=== PATIENT | female | born 1960 | race Caucasian/White ===

== ENCOUNTER 2020-07-29 16:51 | Inpatient (IN) | payer BC, OTHER, SELFPAY ==
[2020-07-29] VITALS (15 sets, daily range): BP systolic 127–227; BP diastolic 85–169; PULSE 84–155; RESP 10–27; TEMP 36.4–36.6; O2SAT 88–94; BMI 54.9
--- NOTE | 2020-07-29 17:15 | PC.NURSE ---
Repeat EKG done at 1701 and shown to ER doctor
--- NOTE | 2020-07-29 17:24 | ECG_ITS ---
[facility] Test Date: 2020-07-29 Pat Name: Leonila Zacarias Department: Room: Gender: Female Facilities Director: : 1960 Requested By: Elvia Aponte I Order Number: [id number] Simi MD: Gordy Lilly M.D. Measurements Intervals [place] Rate: 121 P: 62 MN: 173 QRS: -62 QRSD: 102 T: 54 QT: 306 QTc: 435 Interpretive Statements Possible SINUS TACHYCARDIA LEFT ANTERIOR FASCICULAR BLOCK [QRS AXIS <= -45, QR IN I, RS IN II] ANTERIOR MYOCARDIAL INFARCTION , PROBABLY OLD [40+ ms Q WAVE AND/OR ST/T ABNORMALITY IN V3/V4] INFERIOR MYOCARDIAL INFARCTION , PROBABLY OLD [40+ ms Q WAVE AND/OR ST/T ABNORMALITY IN II/aVF] No previous ECG available for comparison Electronically Signed On 07-29-2020 20:14:24 LUDLOW MACHINE OPERATOR by Gordy Lilly M.D. [id number] f
--- NOTE | 2020-07-29 17:24 | XR_ITS ---
WS: [id number] Portable AP upright chest, 07/29/2020 Clinical Data: chest pain Comparison: None. Findings: No nodules, masses or effusions are seen. The heart is enlarged. Minimal patchy peripheral opacities are present and the patient could have pneumonia. The pulmonary vascularity is not increase d. No pneumothorax is seen. The aortic arch and descending aorta show tortuosity. XR/XR chest 1V portable [id number] Impression: 1. Cardiomegaly and atherosclerosis. 2. Diffuse bilateral interstitial opacities which could indicate acute and/or c hronic pneumonia.
--- NOTE | 2020-07-29 17:24 | PC.PHAR ---
PT STATES SHE HAS A RX FOR LISINOPRIL-HCTZ AND HASNT TAKEN IT IN MONTHS AND IS UNSURE OF THE MG AND CANT REMEMBER WHERE SHE FILLED IN [place] LAST-PT STATES SHE HAD A RX FOR METFORMIN ER 500MG 4 TABS PO DAILY-EXT MED HISTORY SHOWS LAST FILLED ON 09/19/19 90D/S-PT STATES SHE HASNT TAKEN FOR MONTHS AND WHEN SHE DID TAKE SHE TOOK 1 OR 2 TABS A DAY
[2020-07-29] MEDS: aspirin 81 mg Chew Tablet 324 MG PO (17:34)
[2020-07-29] MEDS: nitroglycerin 0.4 mg sublingual Tablet SUBLINGUAL (17:34)
[2020-07-29 17:49] LABS: Basophils # 0.1 10^3/uL (0.0-0.1); Basophils % 0.7 %; Eosinophils # 0.2 10^3/uL (0.0-0.8); Eosinophils % 1.6 %; Hematocrit 55.7 % (37.0-47.0); Lymphocytes % 22.3 %; Mean Corpuscular HGB Conc 32.3 g/dL (30.0-36.0); Mean Corpuscular Hemoglobin 28.8 pg (28.0-34.0); Monocytes # 0.9 10^3/uL (0.2-0.9); Monocytes % 6.5 %; Neutrophils # 9.18 10^3/uL (1.8-7.7); Neutrophils % 68.6 %; Nucleated Red Blood Cells % 0 %; Platelet Count 288 10^3/cmm (130-400); Red Blood Count 6.26 10^6/uL (4.1-5.3); Red Cell Distribution Width 14.9 % (12.1-15.1); White Blood Count 13.4 10^3/uL (4.0-10.0)
[2020-07-29] MEDS: labetalol 5 mg/mL SDV 20mL 10 MG IVP (18:09)
[2020-07-29 18:41] LABS: Troponin(5th) Baseline 88 ng/L (0-10)
[2020-07-29 18:48] LABS: Alanine Aminotransferase 21 U/L (0-33); Alkaline Phosphatase 98 IU/L (35-105); Anion Gap 15.2 (5-19); Aspartate Amino Transferase 20 U/L (0-32); Blood Urea Nitrogen 8 mg/dL (8-23); Calcium 9.5 mg/dL (8.5-10.5); Carbon Dioxide 28 mmol/L (22-29); Chloride 98 mmol/L (98-107); Globulin 3.2 g/dL (1.3-4.6); Glomerular Filtration Rate 161.7 mL/min (90-130); Glucose 190 mg/dL (65-115); Lipase 13 U/L (13-60); NT Pro B Type Natriuretic Pept 962 pg/mL (0-125); Osmolality Calculated 287 mOsm/kg (285-295); Potassium 4.2 mmol/L (3.5-5.1); Sodium 137 mmol/L (136-145); Total Bilirubin 0.8 mg/dL (0.15-1.2); Total Protein 7.2 g/dL (6.6-8.7)
[2020-07-29 19:07] LABS: INR 0.94 (0.8-1.2)
[2020-07-29] MEDS: FUROsemide 10 mg/mL SDV 4mL 40 MG IVP (19:20)
[2020-07-29] MEDS: nitroglycerin 1 gm/inch oint Pkt 1 INCH TOPICAL (19:23)
--- NOTE | 2020-07-29 19:24 | ECG_ITS ---
[facility] Test Date: 2020-07-29 Pat Name: Leonila Zacarias Department: Room: Gender: Female Diamond Expert: : 1960 Requested By: Elvia Aponte I Order Number: [id number] Simi MD: Gordy Lilly M.D. Measurements Intervals [place] Rate: 101 P: 132 NV: 235 QRS: -62 QRSD: 106 T: 38 QT: 361 QTc: 468 Interpretive Statements SINUS TACHYCARDIA WITH FIRST DEGREE AV BLOCK LOW QRS VOLTAGE IN PRECORDIAL LEADS [QRS DEFLECTION < 1.0 mV IN CHEST LEADS] LEFT ANTERIOR FASCICULAR BLOCK [QRS AXIS <= -45, QR IN I, RS IN II] ANTERIOR MYOCARDIAL INFARCTION [40+ ms Q WAVE AND/OR ST/T ABNORMALITY IN V3/V4], PROBABLY OLD INFERIOR MYOCARDIAL INFARCTION [40+ ms Q WAVE AND/OR ST/T ABNORMALITY IN II/aVF], PROBABLY OLD Compared to ECG 07/29/2020 17:01:14 First degree AV block now present Low QRS voltage now present Myocardial infarct finding still present Electronically Signed On 07-29-2020 20:20:27 CAKE MIXER by Gordy Lilly M.D. [id number]
--- NOTE | 2020-07-29 20:55 | P.HP_ITS ---
Providers/Chief Complaint Primary Care Provider: Radha Wong APN Chief Complaint: CP History of Present Illness Leonila Zacarias is a 60 year old female morbidly obese with a history of hypertension and diabetes mellitus type 2 who presented to the emergency department with a complaint of chest pain onset about 5 days ago. Patient d escribed an anterior chest pain, radiating to the back and the left arm, intermittent in nature. Patient reports increasing frequency of chest pain over the last couple of days. She denied any shortness of breath. Chest pain sometimes occur at rest, no known aggravating factor. Patient states his chest pain was partially relieved with nitroglycerin given in the ED. She has significant family history of coronary artery disease. She states that her brother was diagnosed with an MT at the age of 27 and have had multiple stents. Another brother has undergone CABG and multiple cardiac stents. She states that she had a cardiac catheterization in [place] about 7 to 8 years ago and was told she has normal coronary arteries. Her initial troponin in the ED elevated to 88. EKG shows nonspecific ST-T changes. Patient is admitted for further management of NSTEMI. Review of Systems Narrative: She denied any wheezing, she denied any palpitation, she denied any abdominal pain. Except as documented, all other systems reviewed and negative. Medications/Allergies Home Medications Medication Instructions Recorded Confirmed Last Taken Type sgowwbx-fmdttyiqiviaj-ihjnbbxm 2 tab PO PRN 07/29/20 07/29/20 Unknown History [Excedrin Migraine] lisinopril-hydrochlorothiazide See Rx Instructions .ROUTE .COMPLEX 07/29/20 07/29/20 Unknown History metformin See Rx Instructions .ROUTE .COMPLEX 07/29/20 07/29/20 Unknown History naproxen sodium [Aleve] 440 mg PO PRN 07/29/20 07/29/20 07/28/20 History omeprazole [Prilosec] 10 - 20 mg PO DAILY 07/29/20 07/29/20 07/29/20 13:00 History Allergies Allergy/AdvReac Type Severity Reaction Status Date / Time Penicillins Allergy ALGY-Rash Verified 07/29/20 23:36 PFSH Acute PFSH: Family History Brother CAD (coronary artery disease) Brother CAD (coronary artery disease) Mother CAD (coronary artery disease) Social History Smoking and tobacco status: current every day smoker cigarettes Packs smoked per day: 1 Alcohol intake: current Alcohol intake frequency: few times a month Substance/Drug Use: never Marital status: Vitals/I&O/Wt Last Vital Signs Temp 97.9 F 07/29/20 16:52 Pulse 85 07/29/20 19:19 Resp 16 07/29/20 19:19 BP 139/91 07/29/20 19:19 Pulse Ox 94 07/29/20 19:19 Weight last 48 hrs Weight 149.685 kg Physical Exam Const: COMMON NORMALS: no acute distress, patient oriented x3 and alert NUTRITIONAL APPEARANCE: obese HENMT: COMMON NORMALS: normocephalic and atraumatic MOUTH: Normal oral and palatal mucosa present Eye: COMMON NORMALS: Equal, round and reactive pupils present, EOMs intact bilaterally and conjunctivae normal Neck/C-Spine: COMMON NORMALS: full ROM, no lymphadenopathy, supple, no JVD and Thyroid normal Lymph: LYMPHATIC: no lymphadenopathy noted Chest: COMMONS NORMALS: normal palpation of entire chest wall Resp: COMMON NORMALS: normal respiratory effort, No use of accessory muscles and clear to auscultation bilaterally Cardio: COMMON NORMALS: regular rate, regular rhythm, S1 normal heart sound present and S2 normal heart sound present GI: COMMON NORMALS: Normal to inspection, nondistended, normoactive bowel sounds present, Soft to palpation, non-tender and No hepatosplenomegaly present : COMMON NORMALS: Yes no CVA tenderness Back/Pelvis: COMMON NORMALS: thoraco-lumbar ROM normal Extremity: COMMON NORMALS: normal to inspection, no clubbing, cyanosis or edema and no pedal edema Neuro: COMMON NORMALS: CN's II-XII intact bilaterally and no focal motor deficits Psych: COMMON NORMALS: mental status grossly normal, Normal thought process present and cooperative Skin: GENERAL SKIN EXAM: no rashes or lesions noted and no erythema Data : 07/30/20 05:17 07/29/20 17:25 A&P Assessment and plan (1) Chest pain: Status: Acute (2) NSTEMI (non-ST elevated myocardial infarction): Status: Acute (3) Morbid obesity: Status: Acute (4) Type 2 diabetes mellitus: Status: Acute (5) Hypertension: Status: Acute (6) H/O cardiac catheterization: Status: Acute (7) GERD (gastroesophageal reflux disease): Status: Acute Additional A&P Information Patient with typical chest pain, significant family history of coronary artery disease. Troponin is elevated. Patient will be treated for NSTEMI. We will order aspirin, Plavix, metoprolol. Full dose Lovenox. Continue to trend troponin Obtain echocardiogram Cardiology consult. Check hemoglobin A1c Insulin sliding scale for glucose management. Aggressive blood pressure control. Attestations Medical Necessity Statement*: Patient with atypical chest pain presenting with NSTEMI. She will need to be hospitalized and treated for NSTEMI. She is expected to spend more than 2 midnights. 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
[2020-07-29 21:52] LABS: Troponin 5 2HR 94.25 ng/L (0-10); Troponin 5 2HR Delta 6.25 ABS# (0-10)
--- NOTE | 2020-07-29 23:15 | PC.NURSE ---
Called Dr. Peter to verify Lovenox orders. Ordered to give 120 mg now and retime 150mg for 12 hours from now.
[2020-07-29] MEDS: enoxaparin 120 mg/0.8 mL Syringe SUBCUT (23:33)
[2020-07-29] MEDS: acetaminophen 325 mg Tablet 650 MG PO (23:33)
[2020-07-29] MEDS: famotidine 20 mg/2 mL INJ IVP (23:33)
[2020-07-29 23:38] LABS: Troponin 5 6HR 148.6 ng/L (0-10); Troponin 5 6HR Delta 60.6 ng/L (0-12)
--- NOTE | 2020-07-29 23:50 | PC.NURSE ---
Patient arrived to the floor from the ED after report was received via phone. Patient is alert and oriented and ambulatory. Patient does not complain of any chest pain or shortness of breath, but complains of fibromyalgia pain. She states she takes Aleve and Tylenol at home for it.
[2020-07-29 23:52] LABS: Estmated Average Glucose 186; Hemoglobin A1C 8.1 % (4.0-6.0)
[2020-07-30] VITALS (11 sets, daily range): BP systolic 95–153; BP diastolic 61–89; PULSE 67–101; RESP 14–28; TEMP 36.1–36.6; O2SAT 92–95
--- NOTE | 2020-07-30 00:18 | W.ED.CHESTPA ---
HPI - Chest Pain General: Chief Complaint: Chest Pain Stated Complaint: CP Time Seen by Provider: 07/29/20 17:12 Source: patient Mode of arrival: ambulatory Limitations: no limitations History of Present Illness: HPI narrative: 60-year-old female patient with no prior cardiac history presents to the emergency department with complaints of chest pain that has been going on for about 4 to 5 days. Medical history is obesity and diabetes mellitus. Pain is left-sided, radiates to her back, left arm. Because the pain has persisted she presents to the emergency department to be seen. She has no prior cardiac history but she has a strong family history. Both of her brothers have had myocardial infarctions and her dad also. complaint: chest pain Onset (ago): day(s) (4) Timing of current episode: constant Prior episodes: No Onset: during rest Pain location: left chest Pain radiation: left arm and back Severity: moderate Quality: heaviness Relieving factors: nothing Exacerbating factors: exertion Associated symptoms: Reports nausea; Deny abdominal pain, diaphoresis, dyspnea, fever(s), leg edema, palpitations, sense of impending doom, syncope or vomiting Treatment prior to arrival: none Review of Systems General: Reports: 10 or more systems reviewed and unremarkable except in HPI and below Const: Denies: fever(s) or diaphoresis Eyes: Denies: change in vision or blurry vision ENMT: Denies: throat pain, enlarged tonsils, odynophagia, hoarseness, mouth pain or swelling of lips/tongue Card: Denies: palpitations or syncope Resp: Denies: dyspnea GI: Reports: nausea; Denies: abdominal pain or vomiting : Denies: flank pain, difficulty voiding, dysuria, urinary frequency, urinary urgency or urinary hesitancy Musc: Denies: neck pain, back pain or extremity swelling Skin/Breast: Denies: rash, pruritus or erythema Neuro: Denies: headache(s), numbness in extremities or weakness in extremities Endo: Denies: polyuria, polydipsia or tired all the time PFS ED PFSH: Family History Brother CAD (coronary artery disease) Brother CAD (coronary artery disease) Mother CAD (coronary artery disease) Social History Smoking and tobacco status: current every day smoker cigarettes Packs smoked per day: 1 Alcohol intake: current Alcohol intake frequency: few times a month Substance/Drug Use: never Marital status: Physical Exam Const: COMMON NORMALS: average body habitus, patient oriented x3, no limitations, healthy appearing, alert and well nourished GENERAL APPEARANCE: in distress (in painful distress.) NUTRITIONAL APPEARANCE: obese morbidly obese HENMT: COMMON NORMALS: normocephalic, atraumatic and moist oral mucous membranes HEAD & SCALP: normocephalic and atraumatic Neck/C-Spine: COMMON NORMALS: no meningeal signs and no JVD Chest: COMMONS NORMALS: normal inspection of the chest and normal palpation of entire chest wall Resp: COMMON NORMALS: normal respiratory effort, No retractions, No use of accessory muscles, clear to auscultation bilaterally and percussion normal AUSCULTATION: clear to auscultation bilaterally PERCUSSION: percussion normal Cardio: COMMON NORMALS: no JVD, regular rate, regular rhythm, S1 normal heart sound present, S2 normal heart sound present, No gallops present (Cardio), No clicks present (Cardio), No murmurs present (Cardio), No rub (Cardio) and Peripheral pulses 2+ throughout RATE: regular rate RHYTHM: regular rhythm HEART SOUNDS: S1 normal heart sound present and S2 normal heart sound present PERIPHERAL PULSES: Peripheral pulses 2+ throughout GI: COMMON NORMALS: Normal to inspection, nondistended, normoactive bowel sounds present, Soft to palpation, non-tender, No hepatosplenomegaly present, no masses and no bruits PALPATION: Yes Soft to palpation and Yes No hepatosplenomegaly present Extremity: COMMON NORMALS: normal to inspection, full ROM, capillary refill normal, no calf tenderness and no pedal edema Neuro: COMMON NORMALS: patient oriented x3 SENSORIUM/ORIENTATION: Yes alert MENINGEAL SIGNS: Yes no meningeal signs Skin: COMMON NORMALS: no rashes or lesions noted, no wounds, turgor normal, no jaundice, no petechiae and no mottling GENERAL SKIN EXAM: no rashes or lesions noted and turgor normal Course Consultations: Consultation #1: Discussed the patient with Dr. Peter, hospitalist and he kindly accepted the patient to his service Time: 19:35 Vital Signs: Vital signs: Vital Signs Temperature 97.5 F L 07/29/20 23:36 Pulse Rate 86 07/29/20 23:36 Respiratory Rate 17 07/29/20 23:36 Blood Pressure 147/99 07/29/20 23:36 Pulse Oximetry 94 07/29/20 23:36 MDM - Chest Pain MDM Narrative: Medical decision making narrative: This pleasant 60-year-old obese female patient with a history of diabetes mellitus presented to the emergency department with chest pain. Evaluation in the emergency department was consistent with a non-STEMI. She had significantly elevated baseline high-sensitivity troponin with a delta of about 6 at 2 hours. Her symptoms are pretty concerning and she is high risk given that she has diabetes, she is morbidly obese, she has a strong family history of myocardial infarction. She has managed as a case of a non-STEMI and given a dose of Lovenox 1 mg/kg in the emergency department. I explained her lab and imaging findings with her and my concerns. Explained that she will need further work-up and possibly a stress test and an angiogram as part of her work-up. She voiced understanding and was in agreement with the plan. She also appears to be in congestive heart failure likely from the [place]. Medical Records: Attestation: I reviewed the patient's medical records. Lab Data: Attestation: I reviewed the patient's lab results. Labs: Lab Results 07/29/20 07/29/20 07/29/20 Range/Units 17:15 17:25 17:25 WBC 13.4 H (4.0-10.0) 10^3/ uL RBC 6.26 H (4.1-5.3) 10^6/u L Hgb 18.0 H (11.5-15.3) g/dL Hct 55.7 H (37.0-47.0) % MCV 89.0 (81-99) fL MCH 28.8 (28.0-34.0) pg MCHC 32.3 (30.0-36.0) g/dL RDW 14.9 (12.1-15.1) % Plt Count 288 (130-400) 10^3/c mm MPV 10.0 (7.4-10.4) fL Neut % (Auto) 68.6 % Lymph % (Auto) 22.3 % [place] % (Auto) 6.5 % Eos % (Auto) 1.6 % Baso % (Auto) 0.7 % Neut # (Auto) 9.18 H (1.8-7.7) 10^3/u L Lymph # (Auto) 3.0 (0.8-4.8) 10^3/u L [place] # (Auto) 0.9 (0.2-0.9) 10^3/u L Eos # (Auto) 0.2 (0.0-0.8) 10^3/u L Baso # (Auto) 0.1 (0.0-0.1) 10^3/u L Nucleated RBC % (a uto) 0 % Nucleated RBCs # 0.0 /100WBC PT 12.80 (12.1-14.9) SECO NDS INR 0.94 (0.8-1.2) D-Dimer 0.50 (0-0.59) ug/mIFE U Sodium (136-145) mmol/L Potassium (3.5-5.1) mmol/L Chloride (98-107) mmol/L Carbon Dioxide (22-29) mmol/L Anion Gap (5-19) BUN (8-23) mg/dL Creatinine (0.5-0.9) mg/dL GFR Calculation (90-130) mL/min Glucose (65-115) mg/dL Estimat Average Gl ucose 186 Hemoglobin A1c 8.1 H (4.0-6.0) % Calculated Osmolal ity (285-295) mOsm/k g Calcium (8.5-10.5) mg/dL Total Bilirubin (0.15-1.2) mg/dL AST (0-32) U/L ALT (0-33) U/L Alkaline Phosphata se (35-105) IU/L Troponin T Baselin e (0-10) ng/L Troponin T 120 Min [place] (0-10) ng/L Delta Troponin T (0-10) ABS# NT-Pro-B Natriuret Pep (0-125) pg/mL Total Protein (6.6-8.7) g/dL Albumin (3.5-5.2) g/dL Globulin (1.3-4.6) g/dL Lipase (13-60) U/L 07/29/20 07/29/20 07/29/20 Range/Units 17:25 17:25 19:20 WBC (4.0-10.0) 10^3/ uL RBC (4.1-5.3) 10^6/u L Hgb (11.5-15.3) g/dL Hct (37.0-47.0) % MCV (81-99) fL MCH (28.0-34.0) pg MCHC (30.0-36.0) g/dL RDW (12.1-15.1) % Plt Count (130-400) 10^3/c mm MPV (7.4-10.4) fL Neut % (Auto) % Lymph % (Auto) % [place] % (Auto) % Eos % (Auto) % Baso % (Auto) % Neut # (Auto) (1.8-7.7) 10^3/u L Lymph # (Auto) (0.8-4.8) 10^3/u L [place] # (Auto) (0.2-0.9) 10^3/u L Eos # (Auto) (0.0-0.8) 10^3/u L Baso # (Auto) (0.0-0.1) 10^3/u L Nucleated RBC % (a uto) % Nucleated RBCs # /100WBC PT (12.1-14.9) SECO NDS INR (0.8-1.2) D-Dimer (0-0.59) ug/mIFE U Sodium 137 (136-145) mmol/L Potassium 4.2 (3.5-5.1) mmol/L Chloride 98 (98-107) mmol/L Carbon Dioxide 28 (22-29) mmol/L Anion Gap 15.2 (5-19) BUN 8 (8-23) mg/dL Creatinine 0.4 L (0.5-0.9) mg/dL GFR Calculation 161.7 H (90-130) mL/min Glucose 190 H (65-115) mg/dL Estimat Average Gl ucose Hemoglobin A1c (4.0-6.0) % Calculated Osmolal ity 287 (285-295) mOsm/k g Calcium 9.5 (8.5-10.5) mg/dL Total Bilirubin 0.8 (0.15-1.2) mg/dL AST 20 (0-32) U/L ALT 21 (0-33) U/L Alkaline Phosphata se 98 (35-105) IU/L Troponin T Baselin e 88 H (0-10) ng/L Troponin T 120 Min [place] 94.25 H (0-10) ng/L Delta Troponin T 6.25 (0-10) ABS# NT-Pro-B Natriuret Pep 962 H (0-125) pg/mL Total Protein 7.2 (6.6-8.7) g/dL Albumin 4.0 (3.5-5.2) g/dL Globulin 3.2 (1.3-4.6) g/dL Lipase 13 (13-60) U/L Imaging Data^: CXR: Attestation: I personally reviewed and interpreted this imaging study as follows: My impression: Pulmonary vascular congestion EKG Data^: EKG 1: Attestation: I personally reviewed and interpreted this EKG as follows: EKG interpretation date: 07/29/20 EKG interpretation time: 17:01 Prior EKG tracings: not available for review Interpretation: Sinus tachycardia. Heart rate 121 bpm. Left anterior fascicular block. Q waves in leads I, V3, V4 EKG 2: Attestation: I personally reviewed and interpreted this EKG as follows: EKG interpretation date: 07/29/20 EKG interpretation time: 20:14 Prior EKG tracings: available for review Interpretation: Sinus tachycardia. Heart rate 1 1 bpm. Left anterior fascicular block. Q waves in leads I, aVL, V3 V4 Critical Care Time Critical Care Time: Critical Care Time: Yes Total Critical Care Time: 60 Attestation: This case had a high probability of a clinically significant, sudden, or life threatening deterioration of this patient's condition which required my full and direct attention, intervention and personal management. Discharge Plan Discharge Patient Disposition: Admitted As Inpatient Admit Provider: Keo Peter Clinical Impression: NSTEMI (non-ST elevated myocardial infarction), Morbid obesity, Hypertensive urgency Type 2 diabetes mellitus Qualifiers: Diabetes mellitus exterminator helper insulin use: without exterminator helper use Diabetes mellitus complication status: without complication Qualified Code(s): E11.9 - Type 2 diabetes mellitus without complications Congestive heart failure Qualifiers: Heart failure type: unspecified Heart failure chronicity: acute Qualified Code(s): I50.9 - Heart failure, unspecified Condition: Stable Coding Level of Care Code ED Fountain 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
[2020-07-30] MEDS: nitroglycerin 0.4 mg sublingual Tablet SUBLINGUAL ×2 (01:48→02:03)
[2020-07-30] MEDS: morphine 4 mg/mL SDV 1 mL 2 MG IVP (01:56)
--- NOTE | 2020-07-30 02:08 | PC.NURSE ---
Addendum entered by Shanelle Zacarias RN 07/30/20 02:09: Ordered to give 40 Lasix IV now. Original Note: Dr. Peter notified of patient complaining of chest pain 8/10. After two doses of nitro SL and one dose of PRN Morphine, pain is down to 2/10. Notified that nasal cannula has been turned up to 4 liters and patient's oxygen saturation is ranging 85 to 93 percent.
[2020-07-30] MEDS: FUROsemide 10 mg/mL SDV 4mL 40 MG IVP (02:20)
[2020-07-30 05:43] LABS: Basophils # 0.1 10^3/uL (0.0-0.1); Basophils % 0.6 %; Eosinophils # 0.1 10^3/uL (0.0-0.8); Eosinophils % 0.6 %; Hematocrit 54.4 % (37.0-47.0); Hemoglobin 17.6 g/dL (11.5-15.3); Lymphocytes # 2.5 10^3/uL (0.8-4.8); Mean Corpuscular HGB Conc 32.4 g/dL (30.0-36.0); Mean Corpuscular Hemoglobin 29.2 pg (28.0-34.0); Mean Corpuscular Volume 90.2 fL (81-99); Mean Platelet Volume 10.2 fL (7.4-10.4); Monocytes % 6.2 %; Neutrophils # 12.64 10^3/uL (1.8-7.7); Neutrophils % 77.2 %; Nucleated Red Blood Cells % 0 %; Platelet Count 268 10^3/cmm (130-400); Red Blood Count 6.03 10^6/uL (4.1-5.3); Red Cell Distribution Width 14.8 % (12.1-15.1); White Blood Count 16.4 10^3/uL (4.0-10.0)
[2020-07-30 06:10] LABS: Estmated Average Glucose 189; Hemoglobin A1C 8.2 % (4.0-6.0)
[2020-07-30 06:50] LABS: Glucose Point of Care 170 mg/dL (70-110)
--- NOTE | 2020-07-30 08:46 | USCV_ITS ---
Leonila Zacarias Age: 60 Gender: F : 1960 Exam Date: 07/30/2020 09:13 Ordering Phys: Jeff Saldivar MD Technologist: [place] [facility] [place]: NSTEMI BP: 143 / 85 HR: 74 Rhythm: Sinus Technical Quality: Technically difficult study MEASUREMENTS (Male / Female) Normal Values 2D ECHO LV Diastolic Diameter PLAX 5.0 cm 4.2 - 5.9 / 3.9 - 5.3 cm LV Systolic Diameter PLAX 3.6 cm IVS Diastolic Thickness 1.2 cm 0.6 - 1.0 / 0.6 - 0.9 cm IVS Systolic Thickness 1.6 cm LVPW Diastolic Thickness 1.1 cm 0.6 - 1.0 / 0.6 - 0.9 cm LVPW Systolic Thickness 1.7 cm LVOT Diameter 2.0 cm LV Ejection Fraction 2D Teich 55.6 % LV Ejection Fraction MOD 2C 62.0 % LV Ejection Fraction 2C AL 62.4 % LA Diameter 4.7 cm LA Width 3.5 cm LA Height 5.8 cm RA Width 3.7 cm RA Height 6.3 cm Aorta at Sinotubular Diameter 2.6 cm M-MODE LV Diastolic Diameter MM 5.2 cm 4.2 - 5.9 / 3.9 - 5.3 cm LV Systolic Diameter MM 3.5 cm LV Ejection Fraction MM Teich 59.5 % IVS Diastolic Thickness MM 1.1 cm 0.6 - 1.0 / 0.6 - 0.9 cm IVS Systolic Thickness MM 1.8 cm LVPW Diastolic Thickness MM 1.2 cm 0.6 - 1.0 / 0.6 - 0.9 cm LVPW Systolic Thickness MM 2.0 cm RV Diastolic Diameter MM 1.9 cm Aortic Annulus Diameter 3.3 cm LA Ao Ratio MM 1.5 MV E Point Septal Separation 0.9 cm DOPPLER AV Peak Velocity 118.0 cm/s LVOT Peak Velocity 128.0 cm/s AV Area Cont Eq vti 4.0 cm squared AV Area Cont Eq pk 3.4 cm squared MV E' Velocity 3.0 cm/s TR Peak Velocity 165.0 cm/s TR Peak Gradient 10.9 mmHg TV Peak E Velocity 53.0 cm/s Right Atrial Pressure 3.0 mmHg Pulmonary Artery Systolic Pressu 13.9 mmHg PV Peak Velocity 98.0 cm/s FINDINGS Left Ventricle Normal left ventricular cavity size. Normal left ventricular systolic function. Left ventricular ejection fraction is estimated at 55 %. There is possible hypokinesis of basal to mid anteroseptal and apical septal jones. Grade I diastolic dysfunction (abnormal relaxation filling pattern), normal to mildly elevated filling pressures. Right Ventricle Normal right ventricular size and systolic function. Right ventricular systolic pressure 13.9 mmHg. Right Atrium Normal right atrial size. Left Atrium Normal left atrial size. Mitral Valve Mildly thickened mitral valve. No mitral valve stenosis. Trace mitral valve regurgitation. Aortic Valve Aortic valve not well visualized. No aortic valve stenosis. No aortic valve regurgitation. Tricuspid Valve Tricuspid valve not well visualized. Pulmonic Valve Pulmonic valve not well visualized. Pericardium No pericardial effusion. Aorta Normal size aortic root and proximal ascending aorta. CONCLUSIONS 1. Normal left ventricular cavity size and systolic function. Left ventricular ejection fraction is estimated at 55 %. There is possible hypokinesis of basal to mid anteroseptal and apical septal jones. Grade I diastolic dysfunction (abnormal relaxation filling pattern), normal to mildly elevated filling pressures. 2. Normal right ventricular size and systolic function. 3. No significant valvular abnormality based on the study. 4. Normal pulmonary artery pressure. 5. No prior similar studies to compare. Eunice Sanderson MD (Electronically Signed) Final Date: 30 July 2020 17:54 S
[2020-07-30 08:55] LABS: Blood Urea Nitrogen 7 mg/dL (8-23); Calcium 9.2 mg/dL (8.5-10.5); Carbon Dioxide 27 mmol/L (22-29); Chloride 96 mmol/L (98-107); Glomerular Filtration Rate 161.7 mL/min (90-130); Glucose 168 mg/dL (65-115); Magnesium 1.8 mg/dL (1.7-2.3); Osmolality Calculated 278 mOsm/kg (285-295); Sodium 133 mmol/L (136-145)
[2020-07-30 09:08] LABS: Glucose Point of Care 152 mg/dL (70-110)
[2020-07-30] MEDS: pantoprazole DR 40 mg Tablet PO (09:26)
[2020-07-30] MEDS: levoFLOXacin 750 mg Tablet PO (09:26)
[2020-07-30] MEDS: metoprolol tartrate 25 mg Tablet PO ×2 (09:27→21:12)
[2020-07-30 09:56] LABS: SARS Covid-2 Antigen Negative (Negative)
--- NOTE | 2020-07-30 11:23 | PC.CHAP ---
Pastoral Care Encounter/Spiritual Assessment Type of Contact [] Declined weight caller visit [] Patient/Family/Request visit [] Outpatient visit [] Follow-up visit [] Physician referral [] Code/Alert [x] Routine visit [] Staff referral [] Actively dying [] Patient sleeping [] Family support [] [] Out of room [] Palliative care [] [x] Receiving care in room [] Pre-surgical visit [] Trauma [x] Long length of stay [] ICU visit [] Other: Relational/Emotional Strength [x] Patient feels connected with others/family/visitors/staff [] Distress [] Loneliness/isolation [] Abandonment Spirituality of Patient [x] Person of Svetlana [] Attends Zoroastrian of their Svetlana [x] Believes in Prayer [] Reads Bible or Scientology materials [] There are Spiritual issues to be addressed Cleat Thrower Interventions [x] Prayer [x] Active listening [x] Non-anxious presence [x] Spiritual/emotional support [] Crisis/trauma care [x] Spiritual counseling [] Bereavement support [] Provided bereavement packet [] Provided Bible/devotional materials [] Provided toy/stuffed animal, coloring book to patient or family member [] Provided Communion [] Anointing/[place] [] Salvation [x] Completed spiritual assessment [] Other: Impact on Illness or Injury [] Angry [] Fearful [x] Anxious [] Often cries [] Exhaustion [x] Unable to work [] Unable to attend holiness [] Unable to walk/stand [] Unable to read [] Unable to drive [] Unable to eat/drink [] Unable to sleep [] Unable to be with family [] Patient intubated [] Other: Summary Long length of stay, with nurse has a good attitude Time spent with patient 10 mins
[2020-07-30 11:50] LABS: Glucose Point of Care 177 mg/dL (70-110)
--- NOTE | 2020-07-30 12:00 | PC.NURSE ---
spoke with Dr. Saldivar with concerns of giving insulin with patient current NPO status instructions to start patient on cardiac consistent carb diet and continue NPO after midnight tonight incase for further testing also discussed patients medication orders for Pepcid and protonix instructions to stop Pepcid discussed Lovenox order for 150mg q12h instructions given to decrease dose to 140mg q12h
--- NOTE | 2020-07-30 12:37 | PM.CONSULT ---
Providers/Reason For Consult Consulting Physican/Specialty*: Dr. Sanderson, cardiology Reason for Consult*: Non-ST elevation ND Attending Physician: Jeff Saldivar Primary Care Provider: Radha Wong APN History of Present Illness History of Present Illness Leonila Zacarias is a 60 year old female with past medical history of morbid obesity, hypertension, diabetes mellitus type 2, dyslipidemia and family history of CAD presented for evaluation of chest discomfort. Patient states that for the last few days she has been having lower chest discomfort that she felt was like heartburn given her history of acid reflux she did not think much of it. But the pain persisted and got worse last night and that is when she decided to come to the hospital. Pain early on was associated with exertion but yesterday was happening at rest or with minimal exertion. Her older brother were diagnosed with myocardial infarction and underwent angioplasty at age 27 and since then has had multiple stents and bypass. Another brother with multiple stents. She tells me history of cardiac catheterization about 8 years back that was normal. This morning she denies having any chest discomfort. No fever or chills or URI or UTI-like symptoms. She has few episodes of diarrhea on Monday. When she came in her WBC was 13.4, hemoglobin 18, platelet 288, BUN 8, creatinine 0.4, hemoglobin A1c 8.1. Baseline troponin T of 88 and at 2 hours of 94 and at 6 hours of 149. NT proBNP of 962. Her rapid Covid antigen test was negative and Covid PCR is pending. Chest x-ray showed cardiomegaly and atherosclerosis with diffuse bilateral interstitial opacities which could represent acute or chronic pneumonia. KG showed sinus tachycardia with first-degree AV block. Low QRS voltage in precordial leads. Left anterior fascicular block. Anterior ND probably old. Inferior ND probably old. Review of Systems General: Reports: 10 or more systems reviewed and unremarkable except in HPI and below Const: Denies: fever(s) or diaphoresis Eyes: Denies: change in vision or blurry vision ENMT: Denies: throat pain, enlarged tonsils, odynophagia, hoarseness, mouth pain or swelling of lips/tongue Card: Denies: palpitations or syncope Resp: Denies: dyspnea GI: Reports: nausea; Denies: abdominal pain or vomiting : Denies: flank pain, difficulty voiding, dysuria, urinary frequency, urinary urgency or urinary hesitancy Musc: Denies: neck pain, back pain or extremity swelling Skin/Breast: Denies: rash, pruritus or erythema Neuro: Denies: headache(s), numbness in extremities or weakness in extremities Endo: Denies: polyuria, polydipsia or tired all the time Meds/Allergies Home Medications and Allergies Home Medications Medication Instructions Recorded Confirmed Last Taken Type fwodmio-rdweuopuhludf-lzcqnlft 2 tab PO PRN 07/29/20 07/29/20 Unknown History [Excedrin Migraine] lisinopril-hydrochlorothiazide See Rx Instructions .ROUTE .COMPLEX 07/29/20 07/29/20 Unknown History metformin See Rx Instructions .ROUTE .COMPLEX 07/29/20 07/29/20 Unknown History naproxen sodium [Aleve] 440 mg PO PRN 07/29/20 07/29/20 07/28/20 History omeprazole [Prilosec] 10 - 20 mg PO DAILY 07/29/20 07/29/20 07/29/20 13:00 History Allergies Allergy/AdvReac Type Severity Reaction Status Date / Time Penicillins Allergy ALGY-Rash Verified 07/29/20 23:36 Current Medications Current Medications Generic Name Dose Route Start Last Admin Trade Name Freq PRN Reason Stop Dose Admin Acetaminophen 650 mg 07/29/20 23:11 07/29/20 23:33 Acetaminophen 325 Mg Tablet PO 650 mg Q6H PRN Administration Mild/Mod Pain Or Temp >/= 101 Insulin Aspart 0 unit 07/30/20 08:00 07/30/20 09:05 Insulin Aspart 100 Unit/1 Ml SUBCUT Not Given WM&BEDTIME [facility] Protocol Levofloxacin 750 mg 07/30/20 09:00 07/30/20 09:26 Levofloxacin 750 Mg Tablet PO 750 mg DAILY KAYLA Administration Protocol Metoprolol Tartrate 25 mg 07/30/20 09:00 07/30/20 09:27 Metoprolol Tartrate 25 Mg Tablet PO 25 mg BID@0900,2100 KAYLA Administration Morphine Sulfate 2 mg 07/29/20 23:11 07/30/20 01:56 Morphine 4 Mg/Ml Sdv 1 Ml IVP 2 mg Q4H PRN Administration SEVERE PAIN Nitroglycerin 0.4 mg 07/29/20 17:24 07/30/20 02:03 Nitroglycerin 0.4 Mg Sublingual Tablet SUBLINGUAL 0.4 mg Q5M PRN Administration CHEST PAIN Pantoprazole Sodium 40 mg 07/30/20 09:00 07/30/20 09:[address] 40 Mg Tablet PO 40 mg DAILY KAYLA Administration PFSH Acute PFSH: Medical History (Updated 07/30/20 @ 18:03 by Eunice Sanderson MD) GERD (gastroesophageal reflux disease) Hypertension Morbid obesity Type 2 diabetes mellitus Surgical History (Updated 07/30/20 @ 17:44 by Eunice Sanderson MD) H/O cardiac catheterization Family History Brother CAD (coronary artery disease) Brother CAD (coronary artery disease) Mother CAD (coronary artery disease) Social History Smoking and tobacco status: current every day smoker cigarettes Packs smoked per day: 1 Alcohol intake: current Alcohol intake frequency: few times a month Substance/Drug Use: never Marital status: Vitals/I&O/Wt Last Vital Signs Temp 97.2 F L 07/30/20 04:00 Pulse 81 07/30/20 05:30 Resp 22 H 07/30/20 04:00 BP 142/80 07/30/20 04:00 Pulse Ox 95 07/30/20 04:00 07/29/20 07/30/20 07/30/20 22:59 06:59 14:59 Intake Total 300 / 300 Output Total 1000 / 1000 Balance -700 / -700 Weight last 48 hrs Weight 310 lb 3.2 oz Weight 312 lb 12.8 oz Weight 330 lb Physical Exam Narrative: EXAM NARRATIVE: GENERAL: Morbidly obese woman lying in bed in no acute distress HEENT: Extraocular movement intact. Pupils equal round reactive to light. No pallor or icterus. Bilateral xanthelasma present NECK: central trachea, no jugular venous distention appreciated. No carotid bruit. CARDIOVASCULAR SYSTEM: S1-S2 regular. No S3 or S4 present. No murmur rubs or gallops. RESPIRATORY SYSTEM: Chest clear to auscultation. No wheezes rhonchi or rubs heard. No use of accessory muscles. ABDOMEN: Soft, nontender, obese and distended. Normal bowel sounds present. EXTREMITIES: No cyanosis or clubbing. No edema. No signs of chronic venous insufficiency. 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 No focal neurological deficits. SKIN: Normal turgor and temperature. No breakdown, rash or nail changes noted. PSYCH: Normal insight and judgment. A&P Assessment and plan (1) NSTEMI (non-ST elevated myocardial infarction): Currently on aspirin, statin, metoprolol , NTG and therapeutic Lovenox. -Start on Brilinta. -Echocardiogram technically difficult with possible anteroseptal and apical septal hypokinesis. -We will repeat echocardiogram with echo contrast. -Plan for cardiac catheterization once patient's Covid PCR is negative. Status: Acute (2) Hypertension: Blood pressure markedly elevated on arrival, it has improved significantly. Status: Acute Qualifiers: Hypertension type: essential hypertension Qualified Code(s): I10 - Essential (primary) hypertension (3) Type 2 diabetes mellitus: Status: Acute Qualifiers: Diabetes mellitus complication status: without complication Diabetes mellitus prison insulin use: without prison use Qualified Code(s): E11.9 - Type 2 diabetes mellitus without complications (4) Pneumonia: On antibiotics as per primary team. Status: Acute Qualifiers: Pneumonia type: due to unspecified organism (5) GERD (gastroesophageal reflux disease): Status: Acute Qualifiers: Esophagitis presence: esophagitis presence not specified Qualified Code(s): K21.9 - Gastro-esophageal reflux disease without esophagitis Additional A&P Information Hyperlipidemia Morbid obesity Suspect obstructive sleep apnea Chronic active smoker Thank you for allowing me to participate in patient's care. Please feel free to call call with questions or concerns. Consult Attestations Medical Necessity Statement: Needs hospital stay for NSTEMI Time Spent in Patient Care: Greater than 35 minutes (>than 50% of time spent in counselling and/or direct pt care on unit). Coding Level of Care Code Acute Color Tester for [facility] Fwd Diagnoses NSTEMI (non-ST elevated myocardial infarction) I21.4 Hypertension I10 Hypertension type: essential hypertension Type 2 diabetes mellitus E11.9 Diabetes mellitus complication status: without complication Diabetes mellitus prison insulin use: without prison use Pneumonia J18.9 Pneumonia type: due to unspecified organism GERD (gastroesophageal reflux disease) K21.9 Esophagitis presence: esophagitis presence not specified
[2020-07-30] MEDS: enoxaparin 100 mg/mL Syringe SUBCUT (13:05)
[2020-07-30] MEDS: enoxaparin 40 mg/0.4 mL Syringe SUBCUT (13:05)
--- NOTE | 2020-07-30 13:47 | P.PN_ITS ---
Subjective Subjective: Interval history: She has been having mild and of chest discomfort. Denies current chest pain. She has some mild intermittent cough, although says not worse than usual. While on nasal cannula is not short of breath. Vitals/I&O/Wt Last Vital Signs Temp 97.2 F L 07/30/20 04:00 Pulse 81 07/30/20 05:30 Resp 22 H 07/30/20 04:00 BP 142/80 07/30/20 04:00 Pulse Ox 95 07/30/20 04:00 07/29/20 07/30/20 07/30/20 22:59 06:59 14:59 Intake Total 300 / 300 Output Total 1000 / 1000 Balance -700 / -700 Weight last 48 hrs Weight 140.704 kg Weight 141.884 kg Weight 149.685 kg Physical Exam Const: COMMON NORMALS: no acute distress and patient oriented x3 HENMT: COMMON NORMALS: oropharynx normal Eye: OTHER: Bilat xanthelasma Neck/C-Spine: COMMON NORMALS: no JVD Resp: COMMON NORMALS: normal respiratory effort OTHER: Minimal scattered crackles Cardio: COMMON NORMALS: no JVD, regular rhythm, S1 normal heart sound present, S2 normal heart sound present and No murmurs present (Cardio) RHYTHM: regular rhythm HEART SOUNDS: S1 normal heart sound present and S2 normal heart sound present GI: COMMON NORMALS: Normal to inspection, nondistended, normoactive bowel sounds present, Soft to palpation and non-tender PALPATION: Yes Soft to palpation Extremity: COMMON NORMALS: no joint enlargement and no pedal edema Neuro: COMMON NORMALS: patient oriented x3 and moves all extremities Skin: COMMON NORMALS: no rashes or lesions noted GENERAL SKIN EXAM: no rashes or lesions noted Data : 07/30/20 05:17 07/30/20 08:16 A&P Assessment and plan (1) NSTEMI (non-ST elevated myocardial infarction): Follow-up echo. Continue to coagulation. Add aspirin. Cont BB. Statin. Appreciate cardiology recommendations. Status: Acute (2) Chest pain: Better, although still some on and off short symptoms. Status: Acute (3) Pneumonia: Discussed findings of x-ray with her. She may have some intermittent cough, although nothing major. She has been requiring oxygen, however, and on discussion with her this is new. She normally does not require supplemental oxygen. She is agreeable to start Levaquin for now for pneumonia. We will also assess COVID-19. Rapid test was negative. Requested PCR. She reports that she had diarrhea earlier in the week. She otherwise denies headache, vomiting. No body aches. Assess TTE given non-STEMI. Check urine bacterial antigens. 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 Status: Acute Attestations Medical Necessity Statement*: Continue admission for assessment management of pneumonia, non-STEMI. 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
[2020-07-30] MEDS: aspirin 325 mg Tablet PO (16:03)
[2020-07-30 17:24] LABS: Glucose Point of Care 146 mg/dL (70-110)
[2020-07-30] MEDS: ticagrelor 90 mg Tablet 180 MG PO (18:38)
[2020-07-30 20:12] LABS: Glucose Point of Care 144 mg/dL (70-110)
[2020-07-30] MEDS: atorvastatin 40 mg Tablet 80 MG PO (21:12)
[2020-07-31] VITALS (12 sets, daily range): BP systolic 81–143; BP diastolic 57–94; PULSE 59–96; RESP 12–22; TEMP 36.4–36.8; O2SAT 92–96
--- NOTE | 2020-07-31 01:44 | PC.NURSE ---
NURSE NOTE: PT HAD LOVENOX 120MG ORDERED AT 0100 TODAY. PT MAY HAVE A CARDIAC CATHETER IN THE MORNING. NOTIFIED DR. BRUNER. RECEIVED ORDERS TO HOLD LOVENOX.
[2020-07-31 03:59] LABS: Basophils # 0.1 10^3/uL (0.0-0.1); Basophils % 0.6 %; Eosinophils # 0.2 10^3/uL (0.0-0.8); Eosinophils % 1.4 %; Hematocrit 52.1 % (37.0-47.0); Hemoglobin 16.7 g/dL (11.5-15.3); Lymphocytes # 2.6 10^3/uL (0.8-4.8); Lymphocytes % 18.7 %; Mean Corpuscular HGB Conc 32.1 g/dL (30.0-36.0); Mean Corpuscular Hemoglobin 28.8 pg (28.0-34.0); Mean Platelet Volume 9.7 fL (7.4-10.4); Monocytes # 1.1 10^3/uL (0.2-0.9); Neutrophils # 9.94 10^3/uL (1.8-7.7); Neutrophils % 70.9 %; Nucleated Red Blood Cells % 0 %; Platelet Count 243 10^3/cmm (130-400); Red Blood Count 5.79 10^6/uL (4.1-5.3); Red Cell Distribution Width 14.8 % (12.1-15.1)
[2020-07-31 04:19] LABS: Alanine Aminotransferase 19 U/L (0-33); Albumin Level 3.6 g/dL (3.5-5.2); Alkaline Phosphatase 83 IU/L (35-105); Anion Gap 11.8 (5-19); Aspartate Amino Transferase 19 U/L (0-32); Blood Urea Nitrogen 12 mg/dL (8-23); Calcium 9.6 mg/dL (8.5-10.5); Carbon Dioxide 31 mmol/L (22-29); Chloride 96 mmol/L (98-107); Chol HDL Ratio 4.79 mg/dL (0.0-4.40); Cholesterol 139 mg/dL (0-200); Globulin 3.6 g/dL (1.3-4.6); Glomerular Filtration Rate 101.3 mL/min (90-130); Glucose 151 mg/dL (65-115); HDL Cholesterol 29 mg/dL (60-100); LDL Cholesterol Calculated 84 mg/dL (50-129); LDL Cholesterol Direct 103 mg/dL (0-100); Osmolality Calculated 283 mOsm/kg (285-295); Potassium 3.8 mmol/L (3.5-5.1); Sodium 135 mmol/L (136-145); Total Bilirubin 0.9 mg/dL (0.15-1.2); Total Protein 7.2 g/dL (6.6-8.7); Triglycerides 130 mg/dL (0-150)
--- NOTE | 2020-07-31 05:38 | PC.NURSE ---
NURSE NOTE: SHIFT SUMMARY: PT ALERT AND ORIENTED X4, MOVES ALL EXTREMITIES AND FOLLOWS COMMANDS. DENIES PAIN. NPO SINCE MIDNIGHT. CURRENTLY RESTING WITH EYES CLOSED, RESP EVEN AND NON LABORED. ALL VS AND ASSESSMENTS CHARTED. NO DISTRESS NOTED AT THIS TIME.
[2020-07-31 07:09] LABS: Glucose Point of Care 151 mg/dL (70-110)
[2020-07-31] MEDS: aspirin 81 mg Chew Tablet PO (08:34)
[2020-07-31] MEDS: ticagrelor 90 mg Tablet PO ×2 (08:34→17:32)
[2020-07-31] MEDS: levoFLOXacin 750 mg Tablet PO (08:34)
[2020-07-31] MEDS: pantoprazole DR 40 mg Tablet PO (08:34)
[2020-07-31] MEDS: metoprolol tartrate 25 mg Tablet PO ×2 (08:37→21:08)
--- NOTE | 2020-07-31 09:12 | PC.NURSE ---
Patient prepped for angiogram, consent obtained. No questions at this time.
[2020-07-31 11:05] LABS: Glucose Point of Care 140 mg/dL (70-110)
--- NOTE | 2020-07-31 13:12 | PM.PN ---
Subjective Subjective: Interval history: No chest pains overnight; PCR pending. -Plan for [facility] tomorrow with Dr. Marley Medications: Reviewed: Yes Medication Review Details: Current Medications Acetaminophen (Acetaminophen 325 Mg Tablet) 650 mg PO Q6H PRN PRN Reason: Mild/Mod Pain Or Temp >/= 101 Last Admin: 07/29/20 23:33 Dose: 650 mg Documented by: Aspirin (Aspirin 81 Mg Chew Tablet) 81 mg PO DAILY [facility] Last Admin: 07/31/20 08:34 Dose: 81 mg Documented by: Atorvastatin Calcium (Atorvastatin 40 Mg Tablet) 80 mg PO BEDTIME [facility] Last Admin: 07/30/20 21:12 Dose: 80 mg Documented by: Dextrose (Dextrose 50% Syringe 50 Ml) 25 ml IVP ONCE PRN; Protocol PRN Reason: hypoglycemia protocol Dextrose (Dextrose 50% Syringe 50 Ml) 50 ml IVP PRN PRN; Protocol PRN Reason: hypoglycemia protocol Enoxaparin Sodium (Enoxaparin 100 Mg/Ml Syringe) 100 mg SUBCUT Q12H [facility] Last Admin: 07/31/20 01:17 Dose: Not Given Documented by: Enoxaparin Sodium (Enoxaparin 40 Mg/0.4 Ml Syringe) 40 mg SUBCUT Q12H [facility] Last Admin: 07/31/20 01:18 Dose: Not Given Documented by: Glucagon (Glucagon 1 Mg/Ml Inj 1 Ml) 1 mg IM ONCE PRN; Protocol PRN Reason: Adult Acute Hypoglycemia Prot. Dextrose (D5w) 500 mls @ 100 mls/hr IV ONCE PRN; Protocol PRN Reason: Adult Acute Hypoglycemia Prot Insulin Aspart (Insulin Aspart 100 Unit/1 Ml) 0 unit SUBCUT WM&BEDTIME KAYLA; Protocol Last Admin: 07/31/20 11:23 Dose: Not Given Documented by: Levofloxacin (Levofloxacin 750 Mg Tablet) 750 mg PO DAILY [facility]; Protocol Last Admin: 07/31/20 08:34 Dose: 750 mg Documented by: Metoprolol Tartrate (Metoprolol Tartrate 25 Mg Tablet) 25 mg PO BID@0900,2100 [facility] Last Admin: 07/31/20 08:37 Dose: 25 mg Documented by: Morphine Sulfate (Morphine 4 Mg/Ml Sdv 1 Ml) 2 mg IVP Q4H PRN PRN Reason: SEVERE PAIN Last Admin: 07/30/20 01:56 Dose: 2 mg Documented by: Nitroglycerin (Nitroglycerin 0.4 Mg Sublingual Tablet) 0.4 mg SUBLINGUAL Q5M PRN PRN Reason: CHEST PAIN Last Admin: 07/30/20 02:03 Dose: 0.4 mg Documented by: Ondansetron HCl (Ondansetron 2 Mg/Ml Sdv 2 Ml) 4 mg IVP Q8H PRN PRN Reason: vomiting, or N/V if npo Pantoprazole Sodium (Pantoprazole Dr 40 Mg Tablet) 40 mg PO DAILY [facility] Last Admin: 07/31/20 08:34 Dose: 40 mg Documented by: Ticagrelor (Ticagrelor 90 Mg Tablet) 90 mg PO BID [facility] Last Admin: 07/31/20 08:34 Dose: 90 mg Documented by: Vitals/I&O/Wt Last Vital Signs Temp 97.6 F 07/31/20 10:52 Pulse 65 07/31/20 10:52 Resp 12 07/31/20 10:52 BP 108/64 07/31/20 10:52 Pulse Ox 94 07/31/20 10:52 07/30/20 07/31/20 07/31/20 22:59 06:59 14:59 Intake Total 600 / 720 Output Total 400 / 500 Balance 600 / 620 -400 / 220 Weight last 48 hrs Weight 308 lb 14.4 oz Weight 310 lb 3.2 oz Weight 312 lb 12.8 oz Weight 330 lb Physical Exam Narrative: EXAM NARRATIVE: GENERAL: Morbidly obese woman lying in bed in no acute distress HEENT: Extraocular movement intact. Pupils equal round reactive to light. No pallor or icterus. Bilateral xanthelasma present NECK: central trachea, no jugular venous distention appreciated. No carotid bruit. CARDIOVASCULAR SYSTEM: S1-S2 regular. No S3 or S4 present. No murmur rubs or gallops. RESPIRATORY SYSTEM: Chest clear to auscultation. No wheezes rhonchi or rubs heard. No use of accessory muscles. ABDOMEN: Soft, nontender, obese and distended. Normal bowel sounds present. EXTREMITIES: No cyanosis or clubbing. No edema. No signs of chronic venous insufficiency. 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 No focal neurological deficits. SKIN: Normal turgor and temperature. No breakdown, rash or nail changes noted. PSYCH: Normal insight and judgment. Data : 07/31/20 03:48 07/31/20 03:48 Micro: Microbiology 07/30/20 18:58 Legionella Urinary Antigen - Final Urine,Voided Bacterial Antigens - Final A&P Assessment and plan (1) NSTEMI (non-ST elevated myocardial infarction): Currently on aspirin, statin, metoprolol , NTG and therapeutic Lovenox. -Started on Brilinta. -Echocardiogram technically difficult with possible anteroseptal and apical septal hypokinesis. -We will repeat echocardiogram with echo contrast. -Plan for cardiac catheterization once patient's Covid PCR is negative. -Possibly tomorrow, I will keep her NPO for the procedure. Status: Acute (2) Hypertension: Blood pressure markedly elevated on arrival, it has improved significantly. Status: Acute Qualifiers: Hypertension type: essential hypertension Qualified Code(s): I10 - Essential (primary) hypertension (3) Type 2 diabetes mellitus: Status: Acute Qualifiers: Diabetes mellitus complication status: without complication Diabetes mellitus fci insulin use: without fci use Qualified Code(s): E11.9 - Type 2 diabetes mellitus without complications (4) Pneumonia: On antibiotics as per primary team. Status: Acute Qualifiers: Pneumonia type: due to unspecified organism (5) GERD (gastroesophageal reflux disease): Status: Acute Qualifiers: Esophagitis presence: esophagitis presence not specified Qualified Code(s): K21.9 - Gastro-esophageal reflux disease without esophagitis Additional A&P Information Hyperlipidemia Morbid obesity Suspect obstructive sleep apnea Chronic active smoker Thank you for allowing me to participate in patient's care. Please feel free to call call with questions or concerns. Attestations Medical Necessity Statement*: Needs hospital stay for NSTEMI Time Spent in Patient Care: 16 - 35 minutes (>than 50% of time spent in counselling and/or direct pt care on unit). 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
--- NOTE | 2020-07-31 13:13 | USCV_ITS ---
Leonila Zacarias Age: 60 Gender: F : 1960 Exam Date: 07/31/2020 14:20 Ordering Phys: Eunice Sanderson MD ([email or web address]) Technologist: [place] Exam Location: [facility] [place] Indication: CHEST PAIN BP: 108 / 64 HR: 64 Rhythm: Sinus Technical Quality: Adequate MEASUREMENTS (Male / Female) Normal Values 2D ECHO LV Ejection Fraction MOD 2C 57.7 % LV Ejection Fraction 2C AL 58.0 % FINDINGS Left Ventricle Right Ventricle Right Atrium Left Atrium Mitral Valve Aortic Valve Tricuspid Valve Pulmonic Valve Pericardium Aorta CONCLUSIONS 1. This is a limited study with echo contrast ([employer]). 2. Normal left ventricle size and systolic function. Left ventricle ejection fraction estimated at 55%. There is mild hypokinesis of mid to apical anterior, mid anteroseptal, apical septal and apical jones. Eunice Sanderson MD (Electronically Signed) Final Date: 03 August 2020 15:44 S
[2020-07-31] MEDS: perflutren protein-a microsphr 0.22 mg/mL SDV 3 mL IV (14:27)
[2020-07-31 16:01] LABS: Glucose Point of Care 186 mg/dL (70-110)
--- NOTE | 2020-07-31 16:17 | PC.RESP ---
Smoking Cessation information sent to patient.
[2020-07-31 16:27] LABS: Coronavirus Test Green County Not Detected
[2020-07-31 20:23] LABS: Glucose Point of Care 151 mg/dL (70-110)
[2020-07-31] MEDS: atorvastatin 40 mg Tablet 80 MG PO (21:08)
--- NOTE | 2020-07-31 21:39 | PM.PN ---
Subjective Subjective: Interval history: She reports minimal cough. No chest pain. Vitals/I&O/Wt Last Vital Signs Temp 98.1 F 07/31/20 19:37 Pulse 70 07/31/20 19:37 Resp 22 H 07/31/20 19:37 BP 143/68 07/31/20 19:37 Pulse Ox 94 07/31/20 19:37 07/31/20 07/31/20 07/31/20 06:59 14:59 22:59 Output Total 400 / 500 450 / 450 Balance -400 / 220 -450 / -450 Weight last 48 hrs Weight 140.115 kg Weight 140.704 kg Weight 141.884 kg Physical Exam Const: COMMON NORMALS: no acute distress and patient oriented x3 HENMT: COMMON NORMALS: oropharynx normal Eye: OTHER: Bilat xanthelasma Neck/C-Spine: COMMON NORMALS: no JVD Resp: COMMON NORMALS: normal respiratory effort and clear to auscultation bilaterally AUSCULTATION: clear to auscultation bilaterally OTHER: Minimal scattered crackles Cardio: COMMON NORMALS: no JVD, regular rhythm, S1 normal heart sound present, S2 normal heart sound present and No murmurs present (Cardio) RHYTHM: regular rhythm HEART SOUNDS: S1 normal heart sound present and S2 normal heart sound present GI: COMMON NORMALS: Normal to inspection, nondistended, normoactive bowel sounds present, Soft to palpation and non-tender PALPATION: Yes Soft to palpation Extremity: COMMON NORMALS: no joint enlargement and no pedal edema Neuro: COMMON NORMALS: patient oriented x3 and moves all extremities Skin: COMMON NORMALS: no rashes or lesions noted GENERAL SKIN EXAM: no rashes or lesions noted Data : 07/31/20 03:48 07/31/20 03:48 Micro: Microbiology 07/30/20 18:58 Legionella Urinary Antigen - Final Urine,Voided Bacterial Antigens - Final A&P Assessment and plan (1) NSTEMI (non-ST elevated myocardial infarction): Tentative plan for angiogram for tomorrow. COVID-19 returned positive this evening. N.p.o. after midnight. Follow-up echo. Continue anticoagulation. Aspirin. Cont BB. Statin. Echo with normal ejection fraction, possible hypokinesis of basal to mid anteroseptal and apical septal jones. Grade 1 diastolic dysfunction. Status: Acute (2) Chest pain: Improved. Status: Acute (3) Pneumonia: Discussed again regarding unclear etiology of possible atypical pneumonia, possible bacterial pneumonia. We have been awaiting PCR of COVID-19. Discussed with her possibility of this even being some pulmonary edema secondary to NSTEMI presenting as atypical pneumonia. She does note some symptoms of protracted mild intermittent cough, fatigue. Discussed with her alternatively possibility that this may not be acute pneumonia with possibility of progressive chronic lung disease. However, given leukocytosis, suspicion still for a more acute process. She is agreeable in case of negative COVID-19 testing to additionally follow-up in case of lack of improvement possibly with chest CT, PFT for additional assessment in case there are no alternative explanations to her symptoms. This may be done outpatient, possibly even by referral from PCP after reassessment in case of lack of improvement of for now suspected acute process. May also benefit from sleep study. Status: Acute Qualifiers: Pneumonia type: due to unspecified organism (4) Morbid obesity: Status: Acute (5) Type 2 diabetes mellitus: Status: Acute Qualifiers: Diabetes mellitus complication status: without complication Diabetes mellitus exterminator helper termite insulin use: without exterminator helper termite use Qualified Code(s): E11.9 - Type 2 diabetes mellitus without complications (6) Hypertension: Status: Acute Qualifiers: Hypertension type: essential hypertension Qualified Code(s): I10 - Essential (primary) hypertension (7) H/O cardiac catheterization: Status: Inactive (8) GERD (gastroesophageal reflux disease): Status: Acute Qualifiers: Esophagitis presence: esophagitis presence not specified Qualified Code(s): K21.9 - Gastro-esophageal reflux disease without esophagitis (9) Hypoxia: As above. Status: Acute Attestations Medical Necessity Statement*: Continue admission for assessment management of non-STEMI, pneumonia. Coding Level of Care Code Acute Director Medical Economics for [facility] Diagnoses NSTEMI (non-ST elevated myocardial infarction) I21.4 Chest pain R07.9 Pneumonia J18.9 Pneumonia type: due to unspecified organism Morbid obesity E66.01 Type 2 diabetes mellitus E11.9 Diabetes mellitus complication status: without complication Diabetes mellitus exterminator helper termite insulin use: without exterminator helper termite use Hypertension I10 Hypertension type: essential hypertension H/O cardiac catheterization Z98.890 GERD (gastroesophageal reflux disease) K21.9 Esophagitis presence: esophagitis presence not specified Hypoxia R09.02
[2020-08-01] VITALS (38 sets, daily range): BP systolic 108–154; BP diastolic 64–98; PULSE 63–86; RESP 14–32; TEMP 36–36.7; O2SAT 90–97; BMI 51.4
[2020-08-01 04:49] LABS: Basophils # 0.1 10^3/uL (0.0-0.1); Basophils % 0.7 %; Eosinophils # 0.3 10^3/uL (0.0-0.8); Eosinophils % 2.2 %; Hematocrit 52.4 % (37.0-47.0); Hemoglobin 16.7 g/dL (11.5-15.3); Lymphocytes # 2.4 10^3/uL (0.8-4.8); Lymphocytes % 20.1 %; Mean Corpuscular HGB Conc 31.9 g/dL (30.0-36.0); Mean Corpuscular Hemoglobin 28.7 pg (28.0-34.0); Mean Corpuscular Volume 90.2 fL (81-99); Mean Platelet Volume 10.1 fL (7.4-10.4); Monocytes # 1.1 10^3/uL (0.2-0.9); Monocytes % 8.9 %; Neutrophils # 8.17 10^3/uL (1.8-7.7); Neutrophils % 67.7 %; Nucleated Red Blood Cells % 0 %; Platelet Count 260 10^3/cmm (130-400); Red Blood Count 5.81 10^6/uL (4.1-5.3); Red Cell Distribution Width 14.8 % (12.1-15.1); White Blood Count 12.1 10^3/uL (4.0-10.0)
[2020-08-01 05:27] LABS: Alanine Aminotransferase 17 U/L (0-33); Albumin Level 3.5 g/dL (3.5-5.2); Alkaline Phosphatase 80 IU/L (35-105); Anion Gap 14.9 (5-19); Aspartate Amino Transferase 17 U/L (0-32); Blood Urea Nitrogen 15 mg/dL (8-23); Calcium 9.5 mg/dL (8.5-10.5); Carbon Dioxide 30 mmol/L (22-29); Chloride 99 mmol/L (98-107); Globulin 3.5 g/dL (1.3-4.6); Glomerular Filtration Rate 101.3 mL/min (90-130); Glucose 169 mg/dL (65-115); Osmolality Calculated 295 mOsm/kg (285-295); Potassium 3.9 mmol/L (3.5-5.1); Sodium 140 mmol/L (136-145); Total Bilirubin 0.7 mg/dL (0.15-1.2)
[2020-08-01 06:40] LABS: Glucose Point of Care 135 mg/dL (70-110)
[2020-08-01] MEDS: ticagrelor 90 mg Tablet PO ×2 (08:37→17:49)
[2020-08-01] MEDS: aspirin 81 mg Chew Tablet PO (08:37)
[2020-08-01] MEDS: levoFLOXacin 750 mg Tablet PO (08:38)
[2020-08-01] MEDS: diphenhydrAMINE 50 mg Capsule PO (08:38)
[2020-08-01] MEDS: metoprolol tartrate 25 mg Tablet PO ×2 (08:38→20:39)
[2020-08-01] MEDS: pantoprazole DR 40 mg Tablet PO (08:38)
[2020-08-01] MEDS: sodium chloride 0.9% 1,000 ML 50 ML IV (08:42)
--- NOTE | 2020-08-01 09:05 | W.PM.OPSUD ---
Surgery/Procedure H&P Update DATE OF PROCEDURE: August 01, 2020 DATE H&P PERFORMED: 07/29/20 H&P UPDATE INFORMATION: I have reviewed H&P completed within last 30 days, I have examined patient prior to procedure and No changes to prior documentation PREOP DIAGNOSIS: Non-STEMI PLANNED PROCEDURE: Operation Date: 08/01/20 09:00 Proposed Procedures p Left Cardiac Catheterization I21.4(Left) - Eunice Sanderson MD PATIENT REASSESSED PRIOR TO SEDATION, WITH NO CHANGE NOTED: Yes PHYSICAL EXAM: alert, oriented x 3, clear to auscultation bilaterally and regular rate & rhythm AIRWAY EVAL/ANESTHESIA PLAN: ASA II, ASA III, Risks, benefits & alternatives of sedation and/or procedure discussed and Patient agrees to continue as planned
--- NOTE | 2020-08-01 10:00 | XACV_ITS ---
Exam Room: [facility] Ht: 165 cm Wt: 140 kg BSA: 2.62 m2 Gender: Female : 1960 Any Known Allergies: Penicillins Exam Priority: Routine Procedure(s): Procedure Description: Diagnostic procedure Procedure Description: PCI procedure Procedure Description: Drug Eluting Coronary Stent Procedure Description: PTCA Procedure Description: Miscellaneous Procedure Description: ACT Procedure Description: Coronary Angiography Diagnostic Cath Status: Urgent Diagnostic Findings * LM has 0% stenosis. * LAD has 0% stenosis. * CX has 0% stenosis. * RCA has 0% stenosis. * 2nd Diag: Severe 90% stenosis, ALETA: 2 flow. * Coronary angiography shows right dominance. Interventional Findings * 2nd Dia% stenosis treated with Drug Eluting Stent. 0% residual stenosis, ALETA: 3 flow. Conclusions 1. No significant disease noted in the Left Main, LAD, Circumflex, or RCA coronary arteries. 2. 2nd Diag was treated with Drug Eluting Stent. 3. Reason for 4. left heart cath/PCI: 5. Non-ST ovation ND. Recommendations * 1-Return to inpatient for close monitoring and routine cath care 2-Risk factor modification for secondary prevention 3-Statin and aspirin 81 mg life--long, if tolerated 4-Patient was pre-loaded with 600 mg of Plavix, continue Plavix 75mg p.o. daily for at least one year. We will assess at the end of one year again to continue if further or not 5-Continue optimal medical management 6-Follow up with Dr. Marley in four weeks and your primary care in 10 days. Diagnostic RX Recommendation: PCI w/o planned CABG Pressures Phase:Rest AO : 140 / 87 ( 110 ) @ 3:23:00 AM Clinical Evaluation EBL: 5mL-10mL Procedural Details Procedure Consent Obtained. Pre-Procedure Time Out. Identified patient by full name and date of as verbalized by the patient/guarantor. Does the consent match the physician's order: Yes. Accurate & Complete Informed Consent: Yes. Inpatient/Outpatient History & Physical on Chart: Yes. If H&P is completed, is and addenduem needed: No; If yes, is the addendum complete: N/A. Visualize and Verify Site with Patient/Guarantor: N/A. Relevant Radiology Images available: N/A. Pre-op teaching completed and patient verbalized understanding. The risks, benefits, and alternatives of sedation and/or procedure were discussed by physician. The patient agrees to continue. Procedure started. [facility] Clinical Fraility Score: 3: Managing Well. Operators School Manager Indications: ACS > 24 hours. Chest Pain Symptom Assessment: Atypical Angina. Cardiovascular Instability: No. Correct patient, site and procedure confirmed by cath team. PERRLA. Strong, equal hand ring maker bilaterally. Lungs clear x 5 lobes. IV Site on Arrival: 20 gauge in the right forearm. IV Fluids: 0.9% NaCl at KVO. 0 mL infused prior to labor relations supervisor. Pre Procedural Pulses: bilateral dorsalis pedis was 3+. Oxygen started at 2liters/min via nasal canula. Baseline sample Acquired. HR: 82 BPM. Physician arrived. Equipment: 6F - Radial. Cardiac Cath Pack. ACIST Manifold Kit Model BT 2000. Heparinized Saline (2 units/mL), 1000 mL bag. bilateral groins was prepped with chloroprep then draped in the usual sterile fashion. Baseline sample Acquired. HR: 77 BPM. Physician scrubbed in. Immediate Pre-Procedure Time Out. Correct Patient: Yes; Correct Procedure: Yes; Correct Site: Yes; Correct Patient Position: Yes; Correct Supplies: Yes; Dried Flammable Prep: Yes; Blood Products Available: N/A;. Lidocaine 1% infiltrated to the right radial. Arterial access obtained. A 5 romanian TIG catheter in over wire. Exchange wire out. Glidewire inserted. Multiple views taken of left coronary artery. Catheter redirected to the RCA. Catheter removed over the exchange wire. Inventory is [facility] 6 FR XB 3.5 GUIDE. 6 romanian XB 3.5 guide catheter was inserted over the wire. [place] guidewire was advanced through the guide catheter to lesion in the diaganol. Inflation number : 1 A AB MINI TREK 2.00X12 RX BALLOON was prepped and advanced across the 1st Diag , then inflated to 12 TRENT for 0:11 seconds. Results checked. Balloon out. Inventory is Let[employer] Jock [place] XT .[address] Guidewire. Stent balloon out over wire. Wire out. ACT drawn. Results 197 seconds. Therapeutic limits - pre-heparin administration 90-150 seconds and monitoring heparin during a vascular procedure >250 seconds. Guide catheter out. Physician scrubbed out. A TR Band was successful obtaining hemostatsis at the Right Radial artery insertion site. TR band placed. Hemostasis obtained. Post Procedure: Pulses reassessed and unchanged. PERRLA. Strong, equal hand ring maker bilaterally. No VTE prophylaxis required. Medication's Wasted: Lidocaine 1% = 15 mL. Medication's Wasted: Nitro = 49.8 mg. Medication's Wasted: Heparin = 4000 units. Total IV fluids: 100 mL. Contrast type used: Omnipaque 300 mgI/mL, 500 mL bottle. PCI Indication: NSTE. Complications: none. Estimated blood loss: 5mL-10mL. Procedure completed. Patient transferred by bed to 1st floor. Vital chart was stopped. Inflation Number : 2 Katie Cruz LUISANA 2.25X12 LEW -Lot Number# [id number] exp date 03/03/2022 was prepped and advanced across the 1st Diag. The stent was deployed at 12 TRENT for 0:12 seconds. Access Site Site: Right Radial artery Sheath Size: 6 Fr Hemostasis Method: TR Band Hemostasis Success: Successful Procedure Medications Start: 9:08 AM Stop: 9:08 AM Medication: Versed Amount: 1 mg Route: I.V. Start: 9:09 AM Stop: 9:09 AM Medication: Fentanyl Amount: 50 mcg Route: I.V. Start: 9:12 AM Stop: 9:12 AM Medication: Versed Amount: 1 mg Route: I.V. Start: 9:12 AM Stop: 9:12 AM Medication: Fentanyl Amount: 50 mcg Route: I.V. Start: 9:19 AM Stop: 9:19 AM Medication: Nitrogylcerin Amount: 200 mcg Route: I.A. Start: 9:35 AM Stop: 9:35 AM Medication: Heparin Amount: 4000 units Route: I.V. Start: 9:41 AM Stop: 9:41 AM Medication: Versed Amount: 1 mg Route: I.V. Start: 9:41 AM Stop: 9:41 AM Medication: Fentanyl Amount: 50 mcg Route: I.V. Start: 9:55 AM Stop: 9:55 AM Medication: Heparin Amount: 2000 units Route: I.V. I, the attending physician, have reviewed and verified all procedure medications. Yes, all medications given per verbal order History/Risk Factors Hypertension: Yes Dyslipidemia: No Peripheral Arterial Disease (PAD): No Myocardial Infarction (ND): No Obesity: No Renal Disease: No Tobacco Use: Current/Recent(w/in 1 year) Prior Interventions PCI: No CABG: No Valve Surgery: No Report Signatures Finalized by Aliza Marley MD on 08/14/2020 03:44 PM
--- NOTE | 2020-08-01 10:08 | P.PN_ITS ---
Subjective Subjective: Interval history: S/p coronary angiogram. Noted to have 99% subtotally occluded diagonal 2 in the mid segment. It was treated with balloon angioplasty followed by single drug-eluting stent 2.25 x 12 mm. Excellent angiographic result with ALETA-3 flow was restored. Medications: Reviewed: Yes Vitals/I&O/Wt Last Vital Signs Temp 97.7 F 08/01/20 07:20 Pulse 72 08/01/20 07:20 Resp 18 08/01/20 07:20 BP 154/95 08/01/20 07:20 Pulse Ox 94 08/01/20 07:20 07/31/20 08/01/20 08/01/20 22:59 06:59 14:59 Output Total 450 / 450 400 / 850 Balance -450 / -450 -400 / -850 Weight last 48 hrs Weight 308 lb 14.4 oz Weight 308 lb 14.4 oz Physical Exam Narrative: EXAM NARRATIVE: GENERAL: Patient is alert, awake and oriented x3. NECK: No jugular vein distension. HEENT: No cyanosis. No icterus. No pallor. HEART: Regular S1 and S2. No murmur, rub or gallop. LUNGS: Clear to auscultate bilaterally. ABDOMEN: Soft, nontender and nondistended. Positive bowel sounds. No guarding, rebound or tenderness. CENTRAL NERVOUS SYSTEM: Grossly nonfocal. EXTREMITIES: Lower extremities without edema bilaterally. Data : 08/01/20 03:45 08/01/20 03:45 Micro: Microbiology 07/30/20 18:58 Legionella Urinary Antigen - Final Urine,Voided Bacterial Antigens - Final A&P Assessment and plan (1) NSTEMI (non-ST elevated myocardial infarction): Post PCI to diagonal 2 with drug-eluting stent. It was culprit vessel. Continue Brilinta continue aspirin 81 mg for at least 1 year after that we will reassess. Status: Acute (2) Hypertension: Well-controlled. Continue current regimen Status: Acute Qualifiers: Hypertension type: essential hypertension Qualified Code(s): I10 - Essential (primary) hypertension (3) Hypoxia: Need to rule out sleep apnea Status: Acute Attestations Medical Necessity Statement*: Require continuation hospitalization post PCI overnight. 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
--- NOTE | 2020-08-01 10:58 | PC.NURSE ---
blood sugar was 170
--- NOTE | 2020-08-01 15:49 | PC.NURSE ---
TR band off at 1545. Removed per protocol. Incision asymptomatic. Dressing applied, patient tolerated well. Nurse to continue to monitor.
[2020-08-01 17:11] LABS: Glucose Point of Care 202 mg/dL (70-110)
--- NOTE | 2020-08-01 17:28 | PM.PN ---
Subjective Subjective: Interval history: Today she is doing quite well. Denies chest pain or pressure. She is breathing comfortably with rest nasal cannula on, although did notice that her saturation was coming down during the nighttime. Vitals/I&O/Wt Last Vital Signs Temp 97.9 F 08/01/20 14:53 Pulse 69 08/01/20 16:30 Resp 22 H 08/01/20 16:30 BP 120/64 08/01/20 16:30 Pulse Ox 94 08/01/20 16:30 08/01/20 08/01/20 08/01/20 06:59 14:59 22:59 Output Total 400 / 850 450 / 450 Balance -400 / -850 -450 / -450 Weight last 48 hrs Weight 140.115 kg Weight 140.115 kg Physical Exam Const: COMMON NORMALS: no acute distress and patient oriented x3 OTHER: is visiting her bedside. HENMT: COMMON NORMALS: oropharynx normal Eye: OTHER: Bilat xanthelasma Neck/C-Spine: COMMON NORMALS: no JVD Resp: COMMON NORMALS: normal respiratory effort and clear to auscultation bilaterally AUSCULTATION: clear to auscultation bilaterally OTHER: Minimal scattered crackles Cardio: COMMON NORMALS: no JVD, regular rhythm, S1 normal heart sound present, S2 normal heart sound present and No murmurs present (Cardio) RHYTHM: regular rhythm HEART SOUNDS: S1 normal heart sound present and S2 normal heart sound present GI: COMMON NORMALS: Normal to inspection, nondistended, normoactive bowel sounds present, Soft to palpation and non-tender PALPATION: Yes Soft to palpation Extremity: COMMON NORMALS: no joint enlargement and no pedal edema Neuro: COMMON NORMALS: patient oriented x3 and moves all extremities Skin: COMMON NORMALS: no rashes or lesions noted GENERAL SKIN EXAM: no rashes or lesions noted Data : 08/01/20 03:45 08/01/20 03:45 A&P Assessment and plan (1) NSTEMI (non-ST elevated myocardial infarction): Status post coronary angiogram with stenting of 99% subtotally occluded diagonal 2 in the midsegment. Status post LEW. She is doing well. Denies chest pain. Continue post catheter care. Continue aspirin. Brilinta. Cont BB. Statin. Echo with normal ejection fraction, possible hypokinesis of basal to mid anteroseptal and apical septal jones. Grade 1 diastolic dysfunction. Status: Acute (2) Chest pain: Improved. Status: Acute (3) Pneumonia: Overall she is doing a bit better. During the day oxygen requirement down to 3 L from 4 by nasal cannula. She does report noticing some hypoxia at night. Discussed with her consideration of sleep study for sleep apnea, also with possibility of negative pressure pulmonary edema contributing to her symptoms. We discussed possible pneumonia given leukocytosis and seemingly more acute need for supplemental oxygen, although she does report a longstanding history of fatigue. Discussed with her additional assessment after adequate time for recovery from possible pneumonia may include pulmonary function testing to exclude component of developing chronic lung disease. Encouraged her also to avoid HCTZ due to possibilities of associated pulmonary toxicity. She denies keeping any birds or other pets at home. On discharge she would like to proceed with referral for sleep study, PFT after recovery from pneumonia, and will follow up with her primary care provider for reevaluation, and based on results, possible additional assessment and referral. Status: Acute Qualifiers: Pneumonia type: due to unspecified organism (4) Morbid obesity: Status: Acute (5) Type 2 diabetes mellitus: A1c close to goal. Continue current regimen. Status: Acute Qualifiers: Diabetes mellitus complication status: without complication Diabetes mellitus senior care insulin use: without senior care use Qualified Code(s): E11.9 - Type 2 diabetes mellitus without complications (6) Hypertension: Status: Acute Qualifiers: Hypertension type: essential hypertension Qualified Code(s): I10 - Essential (primary) hypertension (7) H/O cardiac catheterization: Status: Inactive (8) GERD (gastroesophageal reflux disease): Status: Acute Qualifiers: Esophagitis presence: esophagitis presence not specified Qualified Code(s): K21.9 - Gastro-esophageal reflux disease without esophagitis (9) Hypoxia: As above. Status: Acute Attestations Medical Necessity Statement*: Continue assessment of management after NSTEMI requiring PCI, assessment and treatment of new onset hypoxia. Coding Level of Care Code Acute Installation Helper for [facility] Fwd Exam Comprehensive Diagnoses NSTEMI (non-ST elevated myocardial infarction) I21.4 Chest pain R07.9 Pneumonia J18.9 Pneumonia type: due to unspecified organism Morbid obesity E66.01 Type 2 diabetes mellitus E11.9 Diabetes mellitus complication status: without complication Diabetes mellitus senior care insulin use: without ad terminal makeup operator use Hypertension I10 Hypertension type: essential hypertension H/O cardiac catheterization Z98.890 GERD (gastroesophageal reflux disease) K21.9 Esophagitis presence: esophagitis presence not specified Hypoxia R09.02
--- NOTE | 2020-08-01 19:35 | PC.NURSE ---
Received report from KOLE Hernández. Patient resting in bed. Patient is s/p [facility] with right radial access. Dressing in place to right wrist remains c,d,i with no s/s of bleeding or hematoma formation observed. Patient denies any pain or discomforts presently. Discussed medications. Patient verbalized understanding. No distress observed.
[2020-08-01 20:22] LABS: Glucose Point of Care 123 mg/dL (70-110)
[2020-08-01] MEDS: atorvastatin 40 mg Tablet 80 MG PO (20:39)
[2020-08-02] VITALS (8 sets, daily range): BP systolic 96–122; BP diastolic 62–77; PULSE 63–74; RESP 15–20; TEMP 35.8–36.6; O2SAT 84–92
[2020-08-02 04:29] LABS: Basophils # 0.1 10^3/uL (0.0-0.1); Basophils % 0.6 %; Eosinophils # 0.2 10^3/uL (0.0-0.8); Eosinophils % 1.8 %; Hematocrit 52.1 % (37.0-47.0); Hemoglobin 16.4 g/dL (11.5-15.3); Lymphocytes # 2.3 10^3/uL (0.8-4.8); Lymphocytes % 19.9 %; Mean Corpuscular HGB Conc 31.5 g/dL (30.0-36.0); Mean Corpuscular Hemoglobin 28.7 pg (28.0-34.0); Mean Corpuscular Volume 91.1 fL (81-99); Mean Platelet Volume 10.2 fL (7.4-10.4); Monocytes % 8.6 %; Neutrophils # 7.89 10^3/uL (1.8-7.7); Neutrophils % 68.5 %; Nucleated Red Blood Cells % 0 %; Platelet Count 255 10^3/cmm (130-400); Red Blood Count 5.72 10^6/uL (4.1-5.3); Red Cell Distribution Width 14.8 % (12.1-15.1); White Blood Count 11.5 10^3/uL (4.0-10.0)
[2020-08-02 04:51] LABS: Alanine Aminotransferase 21 U/L (0-33); Albumin Level 3.5 g/dL (3.5-5.2); Alkaline Phosphatase 74 IU/L (35-105); Aspartate Amino Transferase 17 U/L (0-32); Blood Urea Nitrogen 13 mg/dL (8-23); Calcium 9.4 mg/dL (8.5-10.5); Carbon Dioxide 31 mmol/L (22-29); Chloride 99 mmol/L (98-107); Globulin 3.4 g/dL (1.3-4.6); Glomerular Filtration Rate 101.3 mL/min (90-130); Glucose 138 mg/dL (65-115); Osmolality Calculated 288 mOsm/kg (285-295); Sodium 138 mmol/L (136-145); Total Bilirubin 0.7 mg/dL (0.15-1.2); Total Protein 6.9 g/dL (6.6-8.7)
[2020-08-02 06:37] LABS: Glucose Point of Care 191 mg/dL (70-110)
[2020-08-02] MEDS: aspirin 81 mg Chew Tablet PO (07:59)
[2020-08-02] MEDS: pantoprazole DR 40 mg Tablet PO (07:59)
[2020-08-02] MEDS: metoprolol tartrate 25 mg Tablet PO (08:00)
[2020-08-02] MEDS: levoFLOXacin 750 mg Tablet PO (08:00)
[2020-08-02] MEDS: ticagrelor 90 mg Tablet PO (08:00)
[2020-08-02 11:17] LABS: Glucose Point of Care 119 mg/dL (70-110)
--- NOTE | 2020-08-02 13:19 | P.PN_ITS ---
Subjective Subjective: Interval history: Stable denies any complaint. Post PCI no overnight event Medications: Reviewed: Yes Medication Review Details: Current Medications Acetaminophen (Acetaminophen 325 Mg Tablet) 650 mg PO Q6H PRN PRN Reason: Mild/Mod Pain Or Temp >/= 101 Last Admin: 07/29/20 23:33 Dose: 650 mg Documented by: Aspirin (Aspirin 81 Mg Chew Tablet) 81 mg PO DAILY [facility] Last Admin: 07/31/20 08:34 Dose: 81 mg Documented by: Atorvastatin Calcium (Atorvastatin 40 Mg Tablet) 80 mg PO BEDTIME [facility] Last Admin: 07/30/20 21:12 Dose: 80 mg Documented by: Dextrose (Dextrose 50% Syringe 50 Ml) 25 ml IVP ONCE PRN; Protocol PRN Reason: hypoglycemia protocol Dextrose (Dextrose 50% Syringe 50 Ml) 50 ml IVP PRN PRN; Protocol PRN Reason: hypoglycemia protocol Enoxaparin Sodium (Enoxaparin 100 Mg/Ml Syringe) 100 mg SUBCUT Q12H [facility] Last Admin: 07/31/20 01:17 Dose: Not Given Documented by: Enoxaparin Sodium (Enoxaparin 40 Mg/0.4 Ml Syringe) 40 mg SUBCUT Q12H [facility] Last Admin: 07/31/20 01:18 Dose: Not Given Documented by: Glucagon (Glucagon 1 Mg/Ml Inj 1 Ml) 1 mg IM ONCE PRN; Protocol PRN Reason: Adult Acute Hypoglycemia Prot. Dextrose (D5w) 500 mls @ 100 mls/hr IV ONCE PRN; Protocol PRN Reason: Adult Acute Hypoglycemia Prot Insulin Aspart (Insulin Aspart 100 Unit/1 Ml) 0 unit SUBCUT WM&BEDTIME [facility]; Protocol Last Admin: 07/31/20 11:23 Dose: Not Given Documented by: Levofloxacin (Levofloxacin 750 Mg Tablet) 750 mg PO DAILY [facility]; Protocol Last Admin: 07/31/20 08:34 Dose: 750 mg Documented by: Metoprolol Tartrate (Metoprolol Tartrate 25 Mg Tablet) 25 mg PO BID@0900,2100 [facility] Last Admin: 07/31/20 08:37 Dose: 25 mg Documented by: Morphine Sulfate (Morphine 4 Mg/Ml Sdv 1 Ml) 2 mg IVP Q4H PRN PRN Reason: SEVERE PAIN Last Admin: 07/30/20 01:56 Dose: 2 mg Documented by: Nitroglycerin (Nitroglycerin 0.4 Mg Sublingual Tablet) 0.4 mg SUBLINGUAL Q5M PRN PRN Reason: CHEST PAIN Last Admin: 07/30/20 02:03 Dose: 0.4 mg Documented by: Ondansetron HCl (Ondansetron 2 Mg/Ml Sdv 2 Ml) 4 mg IVP Q8H PRN PRN Reason: vomiting, or N/V if npo Pantoprazole Sodium (Pantoprazole Dr 40 Mg Tablet) 40 mg PO DAILY [facility] Last Admin: 07/31/20 08:34 Dose: 40 mg Documented by: Ticagrelor (Ticagrelor 90 Mg Tablet) 90 mg PO BID [facility] Last Admin: 07/31/20 08:34 Dose: 90 mg Documented by: Vitals/I&O/Wt Last Vital Signs Temp 96.5 F L 08/02/20 11:02 Pulse 67 08/02/20 11:02 Resp 16 08/02/20 11:02 BP 96/62 08/02/20 11:02 Pulse Ox 92 08/02/20 11:02 08/01/20 08/02/20 08/02/20 22:59 06:59 14:59 Intake Total 948.333 / 948.333 360 / 360 Balance 948.333 / 498.333 360 / 360 Weight last 48 hrs Weight 315 lb Weight 308 lb 14.4 oz Physical Exam Narrative: EXAM NARRATIVE: GENERAL: Patient is alert, awake and oriented x3. NECK: No jugular vein distension. HEENT: No cyanosis. No icterus. No pallor. HEART: Regular S1 and S2. No murmur, rub or gallop. LUNGS: Clear to auscultate bilaterally. ABDOMEN: Soft, nontender and nondistended. Positive bowel sounds. No guarding, rebound or tenderness. CENTRAL NERVOUS SYSTEM: Grossly nonfocal. EXTREMITIES: Lower extremities without edema bilaterally. Const: COMMON NORMALS: alert Resp: COMMON NORMALS: clear to auscultation bilaterally AUSCULTATION: clear to auscultation bilaterally Neuro: SENSORIUM/ORIENTATION: Yes alert Data : 08/02/20 03:47 08/02/20 03:47 A&P Assessment and plan (1) NSTEMI (non-ST elevated myocardial infarction): Post PCI no overnight event to diagonal 2. Continue Brilinta aspirin statin beta-breanna BRIANA inhibitor. Status: Acute (2) Hypertension: Well-controlled. Status: Acute Qualifiers: Hypertension type: essential hypertension Qualified Code(s): I10 - Essential (primary) hypertension (3) Hypoxia: Home ox evaluation was performed I will also put her on Lasix 20 mg p.o. daily Status: Acute Additional A&P Information Hyperlipidemia Morbid obesity Suspect obstructive sleep apnea Chronic active smoker Thank you for allowing me to participate in patient's care. Please feel free to call call with questions or concerns. Attestations Medical Necessity Statement*: From a cardiovascular perspective patient can be discharged home Coding Level of Care Code Established Pt Acute Verification Specialist for Chg Fwd Patient Type Established History Detailed Exam Detailed Medical Decision Making Moderate Complexity Diagnoses NSTEMI (non-ST elevated myocardial infarction) I21.4 Hypertension I10 Hypertension type: essential hypertension Hypoxia R09.02
--- NOTE | 2020-08-02 17:39 | PM.DCS ---
Discharge Providers Date of Admission: 07/29/20 20:16 Date of Discharge: August 02, 2020 Attending Provider at Admission: Keo Peter Attending Provider at Discharge: Jeff Saldivar Primary Care Provider: Radha Wong APN Diagnoses at Discharge Discharge Diagnosis (1) NSTEMI (non-ST elevated myocardial infarction): Status: Acute (2) Hypertension: Status: Acute Qualifiers: Hypertension type: essential hypertension Qualified Code(s): I10 - Essential (primary) hypertension (3) Hypoxia: Status: Acute Reason for Visit Reason for Visit: CP Hospital Course Hospital Course Pleasant 60-year-old lady with history of HTN, DM 2, was admitted for assessment management of chest pain with onset about 5 days previously, chest pain radiating to the back, left arm, intermittent in nature. Denies shortness of breath. She noted family history of coronary artery disease. On presentation with finding of non-STEMI with troponin elevation 88-94.25-148.6. NT proBNP 962. Started on aspirin, Plavix, beta-breanna continued on statin. Lovenox. Diabetes control appears to be at goal with A1c of 8.1. Chest x-ray showed cardiomegaly and atherosclerosis. Diffuse bilateral interstitial opacities which could indicate acute and/or chronic pneumonia. In addition through the hospitalization she was noted hypoxic requiring 2-4 L of oxygen by nasal cannula, whereas she declined any history of hypoxia in the past. She did state that she has been having chronic fatigue. Also had stated that there has been suspicion of sleep apnea in the past, although has never had a formal sleep study. She was tested for COVID-19, with negative rapid antigen and PCR. She was treated for possible bacterial pneumonia with Levaquin, and on discharge a prescription is called in for her for 3 more days to complete a week of therapy (discussed w her and she will pick it up at [facility] pharmacy tomorrow). We had quite extensive discussion on a number of occasions with her and also with her present regarding the possible etiologies of hypoxia. This may be an acute pneumonia, possibly viral, possibly bacterial with hypoxia being acute, which may have been exacerbated by non-STEMI, perhaps with minimal pulmonary edema, and may resolve with treatment of the underlying conditions. However, we also discussed given somewhat more chronic nature of her symptoms, some intermittent cough, fatigue, there may be also underlying or developing more chronic condition. For 1 she is referred for sleep study given high risk for obstructive sleep apnea with reported symptoms of snoring, and with risk elevated with morbid obesity. He also discussed other possible etiologies, perhaps even chronic lung disease. Due to this she is also referred for pulmonary function testing. After she recovers from possible pneumonia, consider additional assessment by CT chest to confirm resolution of findings on x-ray, and to closer assess for any other chronic process. Depending on findings of diagnostic studies, consider referral to pulmonology if hypoxia persists or if there are any concerning results. Leukocytosis noted during this hospitalization has been resolving. During the hospital stay she also underwent assessment by coronary angiography with deployment of LEW to 99% subtotally occluded diagonal to in the mid segment. She tolerated the procedure well. Right wrist without any pain, swelling, bleeding. She had no further chest pains. Today she is feeling much better, she is breathing comfortably, although does qualify for 3 L oxygen by nasal cannula at discharge. She states she otherwise is doing great, and request to be discharged home. Please assist her with continued optimization of chronic conditions/risk factors of CAD, sister with options for weight loss. Please assist her with quitting smoking. She was counseled not to smoke in the presence of oxygen due to severe fire hazard and risk of lundberg. Physical Exam Const: COMMON NORMALS: no acute distress and patient oriented x3 NUTRITIONAL APPEARANCE: obese morbidly obese HENMT: COMMON NORMALS: oropharynx normal Eye: OTHER: Bilat xanthelasma Neck/C-Spine: COMMON NORMALS: no JVD Resp: COMMON NORMALS: normal respiratory effort and clear to auscultation bilaterally AUSCULTATION: clear to auscultation bilaterally Cardio: COMMON NORMALS: no JVD, regular rhythm, S1 normal heart sound present, S2 normal heart sound present and No murmurs present (Cardio) RHYTHM: regular rhythm HEART SOUNDS: S1 normal heart sound present and S2 normal heart sound present GI: COMMON NORMALS: Normal to inspection, nondistended, normoactive bowel sounds present, Soft to palpation and non-tender PALPATION: Yes Soft to palpation Extremity: COMMON NORMALS: no joint enlargement and no pedal edema Neuro: COMMON NORMALS: patient oriented x3 and moves all extremities Skin: COMMON NORMALS: no rashes or lesions noted GENERAL SKIN EXAM: no rashes or lesions noted Discharge Data Data Completed and Pending: Completed Studies During Hospitalization Category Date Time Status XR chest 1V dyan ble [id number] Stat Exams 07/29/20 17:24 Completed CV echo complete* [id number] Routine Ultrasound 07/30/20 08:46 Completed Pending at discharge Category Date Time Status INTERNAL SECURITY MANAGER request for service Routin e Exams 07/31/20 13:30 Ordered INTERNAL SECURITY MANAGER request for service Routin e Exams 08/01/20 10:00 Ordered CV echo lmt wo/w contras [id number] Rout ine Ultrasound 07/31/20 13:13 Taken US/CV paperwork R outine Ultrasound 07/31/20 Taken Labs from last 24 hours 08/02/20 08/02/20 08/02/20 11:01 06:31 03:47 WBC RBC Hgb Hct MCV MCH MCHC RDW Plt Count MPV Neut % (Auto) Lymph % (Auto) [place] % (Auto) Eos % (Auto) Baso % (Auto) Neut # (Auto) Lymph # (Auto) [place] # (Auto) Eos # (Auto) Baso # (Auto) Nucleated RBC % (a uto) Nucleated RBCs # Sodium 138 Potassium 4.0 Chloride 99 Carbon Dioxide 31 H Anion Gap 12.0 BUN 13 Creatinine 0.6 GFR Calculation 101.3 Glucose 138 H POC Glucose 119 H 191 H Calculated Osmolal ity 288 Calcium 9.4 Total Bilirubin 0.7 AST 17 ALT 21 Alkaline Phosphata se 74 Total Protein 6.9 Albumin 3.5 Globulin 3.4 08/02/20 08/01/20 03:47 20:15 WBC 11.5 H RBC 5.72 H Hgb 16.4 H Hct 52.1 H MCV 91.1 MCH 28.7 MCHC 31.5 RDW 14.8 Plt Count 255 MPV 10.2 Neut % (Auto) 68.5 Lymph % (Auto) 19.9 [place] % (Auto) 8.6 Eos % (Auto) 1.8 Baso % (Auto) 0.6 Neut # (Auto) 7.89 H Lymph # (Auto) 2.3 [place] # (Auto) 1.0 H Eos # (Auto) 0.2 Baso # (Auto) 0.1 Nucleated RBC % (a uto) 0 Nucleated RBCs # 0.0 Sodium Potassium Chloride Carbon Dioxide Anion Gap BUN Creatinine GFR Calculation Glucose POC Glucose 123 H Calculated Osmolal ity Calcium Total Bilirubin AST ALT Alkaline Phosphata se Total Protein Albumin Globulin Vitals: Last Vital Signs Temp 96.5 F L 08/02/20 15:19 Pulse 63 08/02/20 15:19 Resp 16 08/02/20 15:19 BP 96/62 08/02/20 15:19 Pulse Ox 92 08/02/20 15:19 Discharge Plan Discharge Patient Disposition: Home Condition: Stable Prescriptions: New atorvastatin 40 mg Tablet 80 mg PO BEDTIME Qty: 90 RF: 4 aspirin 81 mg Tablet,Chewable 81 mg PO DAILY Qty: 90 RF: 4 metoprolol tartrate 25 mg Tablet 25 mg PO BID@0900,2100 Qty: 60 RF: 4 Brilinta 90 mg Tablet 90 mg PO BID Qty: 180 RF: 4 lisinopril 2.5 mg tablet 2.5 mg PO DAILY Qty: 30 RF: 6 Lasix 20 mg tablet 20 mg PO QAM 30 Days Qty: 30 RF: 4 levofloxacin 750 mg tablet 750 mg PO DAILY 3 Days Qty: 3 RF: 0 Continued omeprazole 20 mg Capsule,Delayed Release(Dr/Ec) 10 - 20 mg PO DAILY RF: 0 metformin 500 mg tablet extended release 24 hr See Rx Instructions .ROUTE .COMPLEX RF: 0 Excedrin Migraine 250-250-65 mg Tablet 2 tab PO PRN RF: 0 Discontinued naproxen sodium [Aleve] 220 mg Tablet 440 mg PO PRN RF: 0 lisinopril-hydrochlorothiazide See Rx Instructions .ROUTE .COMPLEX RF: 0 Discharge Orders: Discharge Order (Routine); Ordered 08/02/20 Ordered By: Jeff Saldivar Other Ambulatory Orders: DME: Oxygen (Order) Location: None Selected Ordered By: Jeff Saldivar Pulmonary Function Screen with Bronchodilator (Routine) Timeframe: 2 Weeks Facility: [facility] - Location: Respiratory Therapy Ordered By: Jeff Saldivar Sleep Study/Titration (Routine) Timeframe: 2 Days Location: None Selected Ordered By: Jeff Saldivar Referrals: Aliza Marley MD [Physician] - ([facility] will contact you to schedule an follow-up in 1 month. If you haven't heard from them by Monday afternoon. Please call ) [place],Caron, SURVEY METHODOLOGIST [Nurse Practitioner] - ([facility] will contact you to schedule an follow-up appointment in 1 week. If you haven't heard from them by Monday afternoon. Please call ) Tonia Valverde MD [Physician] - ([facility] will contact you to schedule an follow-up appointment and to establish primary care in 4 to 7 days. If you haven't heard from them by Monday afternoon. Please call Centralized Scheduling will contact you to schedule an out-patient sleep study. If you haven't heard from them by Monday afternoon. Please call ) Discharge Diet: Cardiac and Diabetic Discharge Activity: Oxygen as instructed Patient Instructions: Metoprolol (By mouth), Lisinopril (By mouth), Furosemide (By mouth), Aspirin (By mouth), Atorvastatin (By mouth), Ticagrelor (By mouth), Left Heart Catheterization (DC), Diabetes Mellitus Type 2 in Adults (DC), Gastroesophageal Reflux Disease (DC), Hypertension (DC), Post Angiogram Home Care Instructions Activity Restrictions/Additional Instructions: Have your primary care doctor follow-up results of sleep study, pulmonary function testing. Discuss with your primary care doctor referral for CT chest after resolution of pneumonia to confirm resolution and assess for any additional underlying pulmonary disease. Depending on results consideration may be given to referral to pulmonology. Please discuss with your primary care doctor that you have had a myocardial infarction (heart attack). Please discuss possible pneumonia, but with concern of more chronic underlying lung disease. Please continue to work with your primary care doctor with regards to optimization of diabetes, hypertension, and risk factors of coronary disease. Please discuss with your primary care doctor regarding weight loss options. Please monitor your oxygenation at home, target saturation 92%. If saturation remains persistently below that, or you develop any concerning symptoms including chest pain, please seek medical attention without delay. Please avoid any NSAIDs like Aleve, ibuprofen, etc. Please avoid cigarette smoke which may worsen your lung function. Avoid cigarettes or any fire near oxygen due to severe fire risk. Discharge Attestations Time Spent in Discharge Care*: greater than 30 min Quality Metrics Clinical Quality Measures During this hospital stay, did patient experience: AMI Clinical Trial Participant: No Contraindication to aspirin (AMI): Aspirin given Contraindication to statin: Statin prescribed Contraindication to PCI: PCI performed Coding Level of Care Code Acute Staging Technician for g Fwd Diagnoses NSTEMI (non-ST elevated myocardial infarction) I21.4 Hypertension I10 Hypertension type: essential hypertension Hypoxia R09.02
== END 2020-08-02 15:21 | disposition home or self-care (01) | DRG 246 ==
LOC: ER 21:45 → CSU 23:17
PROVIDERS: Internal Medicine Cardiovascular Disease; Admitting Provider Internal Medicine; Emergency Provider Family Medicine; PCP Nurse Practitioner Family; Visit Provider Internal Medicine
PROC: 027034Z Dilation of Coronary Artery, One Artery with Drug-eluting Intraluminal Device, Percutaneous Approach (ICD-10-PCS; principal; 2020-08-01 09:00)
PROC: 027034Z Dilation of Coronary Artery, One Artery with Drug-eluting Intraluminal Device, Percutaneous Approach (ICD-10-PCS; 2020-08-01 09:00)
DX: I21.4 Non-ST elevation (NSTEMI) myocardial infarction (principal); J15.9 Unspecified bacterial pneumonia; Z68.43 Body mass index [BMI] 50.0-59.9, adult; I10 Essential (primary) hypertension; E11.9 Type 2 diabetes mellitus without complications; I25.10 Atherosclerotic heart disease of native coronary artery without angina pectoris; Z82.49 Family history of ischemic heart disease and other diseases of the circulatory system; F17.210 Nicotine dependence, cigarettes, uncomplicated; E66.01 Morbid (severe) obesity due to excess calories; K21.9 Gastro-esophageal reflux disease without esophagitis; E78.5 Hyperlipidemia, unspecified; I51.7 Cardiomegaly; I25.2 Old myocardial infarction; G47.33 Obstructive sleep apnea (adult) (pediatric); Z79.84 Long term (current) use of oral hypoglycemic drugs
CPT/HCPCS: 12345; 36415; 36416; 71045; 80048; 80053; 80061; 82962; 83036; 83690; 83721; 83735; 83880; 84484; 85025; 85347; 85378; 85610; 86403; 87426; 87449; 87635; 93005; 93306; 93454; 96372; 99283; C1725; C1769; C1874; C1887; C1894; C8924; C9600; J1644; J1650; J1815; J1940; J2250; J2270; J3010; J3490; J7030; Q0163; Q9956; Q9967

== ENCOUNTER 2020-09-03 20:00 | Outpatient (CLI) | payer BC, OTHER, SELFPAY | END 2020-09-03 20:01 | disposition home or self-care (01) | LOC: SLEEP 09-04 07:51 | PROVIDERS: PCP Nurse Practitioner Family; Visit Provider Internal Medicine | DX: G47.30 Sleep apnea, unspecified (principal) | CPT/HCPCS: 95810 ==

== ENCOUNTER 2020-10-27 20:00 | Outpatient (CLI) | payer BC, OTHER, SELFPAY | END 2020-10-27 20:01 | disposition home or self-care (01) | LOC: SLEEP 10-28 10:24 | PROVIDERS: PCP Nurse Practitioner Family; Visit Provider Family Medicine | DX: G47.33 Obstructive sleep apnea (adult) (pediatric) (principal) | CPT/HCPCS: 95811 ==

== ENCOUNTER → 2020-12-07 11:04 | Outpatient (BNVA) | payer BC, OTHER, SELFPAY | PROVIDERS: PCP Nurse Practitioner Family; Visit Provider Family Medicine | DX: I10 Essential (primary) hypertension (principal); E11.9 Type 2 diabetes mellitus without complications; E78.2 Mixed hyperlipidemia; Z68.42 Body mass index [BMI] 45.0-49.9, adult; F17.210 Nicotine dependence, cigarettes, uncomplicated | CPT/HCPCS: 80053; 80061; 83036; 84443; 85025 ==

== ENCOUNTER 2021-01-13 11:52 | Outpatient (CLI) | payer BC, OTHER, SELFPAY ==
--- NOTE | 2021-01-13 12:00 | MM_ITS ---
WS: [id number] BILATERAL DIGITAL SCREENING MAMMOGRAPHY WITH CAD CLINICAL INFORMATION: Z12.31 - Encounter for screening mammogram for malignant ... HISTORY: Screening mammogram. No current complaints. COMPARISON: Outside examinations and 05/11/10 TECHNIQUE: Bilateral CC and MLO views. FINDINGS: Scattered fibroglandular densities bilaterally. A few tiny punctate calcifications. No suspicious foc al mass, asymmetry, calcifications, or architectural distortion. No evidence of malignancy. MM/[place] [id number] IMPRESSION: BI-RADS: 2-Benign FOLLOW UP: 1 Year Follow-up Recommend return to annual screening mammography.
== END 2021-01-13 11:53 | disposition home or self-care (01) ==
LOC: RADSHAW 11:58
PROVIDERS: PCP Family Medicine; Visit Provider Family Medicine
DX: Z12.31 Encounter for screening mammogram for malignant neoplasm of breast (principal)
CPT/HCPCS: 77067

== ENCOUNTER 2021-03-08 13:00 | Observation (INO) | payer BC, OTHER, SELFPAY ==
[2021-03-08 13:22] VITALS: BP 117/76; PULSE 64; RESP 16; TEMP 36.9; O2SAT 91; BMI 44.1
--- NOTE | 2021-03-08 13:27 | ECG_ITS ---
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 Measurements Intervals [place] Rate: 62 P: -1 SC: 218 QRS: -36 QRSD: 82 T: 20 QT: 404 QTc: 413 Interpretive Statements SINUS RHYTHM WITH FIRST DEGREE AV BLOCK LOW QRS VOLTAGE IN PRECORDIAL LEADS [QRS DEFLECTION < 1.0 mV IN CHEST LEADS] POSSIBLE ANTERIOR MYOCARDIAL INFARCTION, PROBABLY OLD INFERIOR MYOCARDIAL INFARCTION, OF INDETERMINATE AGE Compared to ECG 07/29/2020 20:13:54 Sinus tachycardia no longer present Left anterior fascicular block no longer present Myocardial infarct finding still present Electronically Signed On 03-08-2021 19:09:09 CDT by Eunice Sanderson M.D. [id number]
[2021-03-08 15:07] VITALS: BP 118/81; PULSE 58; RESP 16; O2SAT 94
--- NOTE | 2021-03-08 18:10 | ED_ITS ---
HPI - Chest Pain General: Chief Complaint: Chest Pain Stated Complaint: Chest Pain, sent per dr Time Seen by Provider: 03/08/21 18:10 History of Present Illness: HPI narrative: Ms. Zacarias is a 61-year-old lady with significant past medical history of NSTEMI, hypertension, hyperlipidemia, diabetes who presents emergency department due to chest pain. She reports symptom onset was approximately 1.5 weeks ago without known inciting event. Since that time she has had intermittent episodes of chest pressure and occasionally more aching in the left anterior chest. There is intermittent radiation down the arms and today she had some radiation of the neck. She does not have associated diaphoresis but does have mild nausea. She is not short of breath. There is no specific exertional component however the symptoms are similar to her prior [place]. Overall the course of symptoms has mildly been worsening. The intensity is moderate. No other specific changes in health, infectious, provoking, exacerbating, or alleviating factors identified. Review of Systems General: Reports: 10 or more systems reviewed and unremarkable except in HPI and below Narrative: CONSTITUTIONAL: denies fever, fatigue, weakness EYES - denies pain, denies loss of vision EARS - denies ear issues. NOSE - denies congestion or rhinorrhea. THROAT - denies sore throat or difficulty swallowing. CARDIOVASCULAR -see HPI RESPIRATORY - denies shortness of breath and cough GASTROINTESTINAL -see HPI GENITOURINARY - denies dysuria or urinary frequency MUSCULOSKELETAL- denies deformity or pain SKIN - denies rashes or new changed skin lesions NEUROLOGIC - denies focal weakness or sensory changes HEMATOLOGIC/LYMPHATIC - denies easy bruising or lymphadenopathy. FOR[facility]LY [facility], [facility] ED PFSH: Medical History GERD (gastroesophageal reflux disease) Hypertension Morbid obesity NSTEMI (non-ST elevated myocardial infarction) Type 2 diabetes mellitus Surgical History H/O cardiac catheterization Family History Brother CAD (coronary artery disease) Brother CAD (coronary artery disease) Mother CAD (coronary artery disease) Social History Smoking and tobacco status: current some day smoker (1 ppd, for 7 years) cigarettes Packs smoked per day: 1 Alcohol intake: current Alcohol intake frequency: few times a month Marital status: Physical Exam Narrative: EXAM NARRATIVE: GENERAL/CONSTITUTIONAL - well-appearing. No acute distress. Obese Eyes - PERRL, no conjunctival injection ENMT - Atraumatic external nose and ears. Moist mucous membranes NECK - supple. trachea midline CARDIOVASCULAR - regular rate and rhythm. Peripheral pulses 2+ and equal RESPIRATORY -clear to auscultation bilaterally. No retractions or accessory muscle use. ABDOMEN/GI - Nontender/Nondistended. No tenderness to percussion or evidence of peritonitis MSK - Extremities without obvious deformity or tenderness to palpation SKIN - Warm, Dry NEURO - alert and appropriately oriented. strength and sensation intact. Moves all extremities equally. PSYCH - Appropriate mood and affect Course ED course: - Patient was seen and evaluated by me at bedside - Patient placed on cardiac monitors, IV access obtained - Initial evaluation notable for no acute distress, nontoxic appearance. Chest pain not reproducible with deep breaths or palpation. - Labs notable for leukocytosis and elevated hemoglobin similar to prior, no significant metabolic abnormality. Troponin negative. - Imaging notable for no acute finding to explain patient's symptoms - Upon serial reexamination after treatment the patient was improved with resolution of chest pain. -This is a concerning timeframe with history of stent approximately 7 months ago. I discussed the case with Dr. Lilly of the cardiology service who recommended admission for stress test. -Results of ED evaluation were discussed with the patient. She was agreeable to admission. -Hospitalist service contacted and agreed to admit the patient for inpatient stress testing. - Patient was admitted without further deterioration or significant events. Vital Signs: Vital signs: Vital Signs Temperature 98.4 F 03/09/21 14:54 Pulse Rate 57 L 03/09/21 14:54 Respiratory Rate 16 03/09/21 14:54 Blood Pressure 104/68 03/09/21 14:54 Pulse Oximetry 92 03/09/21 14:54 MDM - Chest Pain Medical Records: Attestation: I reviewed the patient's medical records. Lab Data: Attestation: I reviewed the patient's lab results. Labs: Lab Results 03/08/21 03/08/21 03/08/21 Range/Units 18:50 18:50 18:50 WBC 14.2 H (4.0-10.0) 10^3/ uL RBC 5.74 H (4.1-5.3) 10^6/u L Hgb 17.0 H (11.5-15.3) g/dL Hct 52.6 H (37.0-47.0) % MCV 91.6 (81-99) fl MCH 29.6 (28.0-34.0) pg MCHC 32.3 (30.0-36.0) g/dL RDW 15.3 H (12.1-15.1) % Plt Count 281 (130-400) 10^3/c mm MPV 10.4 (7.4-10.4) fL Neut % (Auto) 69.1 % Lymph % (Auto) 20.9 % [place] % (Auto) 6.5 % Eos % (Auto) 2.6 % Baso % (Auto) 0.6 % Neut # (Auto) 9.83 H (1.8-7.7) 10^3/u L Lymph # (Auto) 3.0 (0.8-4.8) 10^3/u L [place] # (Auto) 0.9 (0.2-0.9) 10^3/u L Eos # (Auto) 0.4 (0.0-0.8) 10^3/u L Baso # (Auto) 0.1 (0.0-0.1) 10^3/u L Nucleated RBC % (a uto) 0 % Nucleated RBCs # 0.0 /100WBC Sodium 143 (136-145) mmol/L Potassium 3.9 (3.5-5.1) mmol/L Chloride 102 (98-107) mmol/L Carbon Dioxide 30 H (22-29) mmol/L Anion Gap 14.9 (5-19) BUN 10 (8-23) mg/dL Creatinine 0.4 L (0.5-0.9) mg/dL GFR Calculation 161.2 H (90-130) mL/min Glucose 93 (65-115) mg/dL Calculated Osmolal ity 295 (285-295) mOsm/k g Calcium 9.5 (8.5-10.5) mg/dL Total Bilirubin 1.0 (0.15-1.2) mg/dL AST 13 (0-32) U/L ALT 14 (0-33) U/L Alkaline Phosphata se 104 (35-105) IU/L Troponin T Baselin e 7 (0-10) ng/L NT-Pro-B Natriuret Pep 157 H (0-125) pg/mL Total Protein 7.0 (6.6-8.7) g/dL Albumin 4.1 (3.5-5.2) g/dL Globulin 2.9 (1.3-4.6) g/dL Lipase 12 L (13-60) U/L EKG Data^: EKG 1: Attestation: I personally reviewed and interpreted this EKG as follows: EKG interpretation date: 03/08/21 Prior EKG tracings: available for review Interpretation: Twelve-lead EKG shows a regular sinus rhythm at a rate of 62. [place] interval 218, QRS duration 82, QTc 413. Left axis deviation. Interpretation: Sinus rhythm, nonspecific ST segment abnormalities, first-degree AV block. EKG 2: Attestation: I personally reviewed and interpreted this EKG as follows: EKG interpretation date: 03/09/21 EKG interpretation time: 02:27 Prior EKG tracings: available for review Interpretation: Twelve-lead EKG shows a regular sinus rhythm at a rate of 61. WY interval 205, QRS duration 111, QTc 447. Left axis deviation. Interpretation: Sinus rhythm, nonspecific ST segment abnormalities, first-degree AV block. Discharge Plan Discharge Admit Provider: Jeffy Virk Condition: Stable Discharge Orders: Discharge Order (Routine); Ordered 03/09/21 Ordered By: Aliza Joyce Discharge Diet: Cardiac Discharge Activity: Resume usual activity Coding Level of Care Code ED Manager Media Relations for [facility]
--- NOTE | 2021-03-08 18:13 | XRR_ITS ---
PROCEDURE INFORMATION: Exam: XR Chest Exam date and time: 03/08/2021 6:13 PM Age: 61 years old Clinical indication: Left-sided; Prior surgery; Surgery type: Stents; Patient HX: Left sided chest pain x week and half TECHNIQUE: Imaging protocol: XR of the chest. Views: 1 view. COMPARISON: CR XR chest 1V portable [id number] 07/29/2020 5:26 PM FINDINGS: Lungs: Unremarkable. No consolidation. Pleural spaces: Unremarkable. No pleural effusion. No pneumothorax. Heart/Mediastinum: Mild cardiomegaly. Bones/joints: Visualized osseous structures appear intact. XR/XR chest 1V portable [id number] IMPRESSION: Stable exam, no acute findings.
[2021-03-08 18:54] VITALS: BP 144/74; PULSE 56; RESP 22; O2SAT 93
[2021-03-08 19:13] LABS: Basophils # 0.1 10^3/uL (0.0-0.1); Basophils % 0.6 %; Eosinophils # 0.4 10^3/uL (0.0-0.8); Eosinophils % 2.6 %; Hematocrit 52.6 % (37.0-47.0); Lymphocytes % 20.9 %; Mean Corpuscular HGB Conc 32.3 g/dL (30.0-36.0); Mean Corpuscular Hemoglobin 29.6 pg (28.0-34.0); Mean Corpuscular Volume 91.6 fl (81-99); Mean Platelet Volume 10.4 fL (7.4-10.4); Monocytes # 0.9 10^3/uL (0.2-0.9); Monocytes % 6.5 %; Neutrophils # 9.83 10^3/uL (1.8-7.7); Neutrophils % 69.1 %; Nucleated Red Blood Cells % 0 %; Platelet Count 281 10^3/cmm (130-400); Red Blood Count 5.74 10^6/uL (4.1-5.3); Red Cell Distribution Width 15.3 % (12.1-15.1); White Blood Count 14.2 10^3/uL (4.0-10.0)
[2021-03-08 19:40] LABS: Alanine Aminotransferase 14 U/L (0-33); Albumin Level 4.1 g/dL (3.5-5.2); Alkaline Phosphatase 104 IU/L (35-105); Anion Gap 14.9 (5-19); Aspartate Amino Transferase 13 U/L (0-32); Blood Urea Nitrogen 10 mg/dL (8-23); Calcium 9.5 mg/dL (8.5-10.5); Carbon Dioxide 30 mmol/L (22-29); Chloride 102 mmol/L (98-107); Globulin 2.9 g/dL (1.3-4.6); Glomerular Filtration Rate 161.2 mL/min (90-130); Glucose 93 mg/dL (65-115); Lipase 12 U/L (13-60); NT Pro B Type Natriuretic Pept 157 pg/mL (0-125); Osmolality Calculated 295 mOsm/kg (285-295); Potassium 3.9 mmol/L (3.5-5.1); Sodium 143 mmol/L (136-145); Troponin(5th) Baseline 7 ng/L (0-10)
[2021-03-08 20:41] VITALS: RESP 17; O2SAT 94
[2021-03-08 20:43] VITALS: BP 118/70
[2021-03-08] MEDS: aspirin 81 mg Chew Tablet 324 MG PO (20:50)
[2021-03-08] MEDS: lactated ringers 1,000 ML 999 ML IV (20:51)
--- NOTE | 2021-03-08 22:09 | P.HP_ITS ---
Providers/Chief Complaint Admitting Physician: Jeffy Virk MD Primary Care Provider: Tonia Valverde MD Chief Complaint: Chest Pain, sent per History of Present Illness Leonila Zacarias is a 61 year old female with a past medical history of CAD status post stenting to diagonal compliant with aspirin and Brilinta, noninsulin- dependent type 2 diabetes mellitus, last A1c 6.2, hypertension, hyperlipidemia, obstructive sleep apnea on home BiPAP, who presents [facility] due to a week history of chest pain. Patient tells me that for the last week she has had some substernal chest pain, the pain is typically dull, sometimes pressure- like, in the anterior chest, sometimes under the left breast, radiating to up to the left shoulder, radiating up to the left neck, is very similar to the chest pain she had when she had her stent placed, but less in severity, but is beco vladimir much more frequent, not associate with shortness of breath, no lightheaded, dizziness, no diaphoresis, she presented to her primary care physician this morning and had complaints of chest pain no acute ST-T wave changes in the EKG that was performed in office, she was told to come to the emergency room by Dr. Felix as her primary care provider contacted Dr. felix, here in the emergency room she does not have any clinically significant troponin, no delta troponin, EKG no acute ST-T wave changes, ER physician spoke to Dr. Lilly, who recommended admission with stress testing. Hospitalist team was called for admission. Currently chest pain-free, no palpable chest pain, no history of cough, no sinus symptoms, no history of Covid infection, has was received both Covid vaccines Review of Systems Const: Denies: fever(s), chills, fatigue or malaise Eyes: Denies: change in vision or blurry vision ENMT: Denies: nasal congestion Card: Reports: chest pain; Denies: palpitations, irregular heart rhythm, edema, swelling of feet/ankles or dyspnea on exertion Resp: Denies: dyspnea, productive cough, non-productive cough or wheezing GI: Denies: abdominal pain, nausea, vomiting, hematemesis, diarrhea, constipation, hematochezia or melena : Denies: flank pain, dysuria or urinary frequency Musc: Denies: neck pain or back pain Skin/Breast: Denies: rash Neuro: Denies: headache(s), dizziness or vertigo Endo: Denies: polyuria or polydipsia Medications/Allergies Home Medications Medication Instructions Recorded Confirmed Last Taken Type aspirin 81 mg PO DAILY #90 tab 08/02/20 03/08/21 03/08/21 Rx atorvastatin 40 mg tablet 80 mg PO BEDTIME #90 tab 12/07/20 03/08/21 03/07/21 Rx lisinopril 2.5 mg tablet 2.5 mg PO DAILY #30 tab 12/07/20 03/08/21 03/08/21 Rx metoprolol tartrate 25 mg tablet 25 mg PO BID@0900,2100 #60 tab 12/07/20 03/08/21 03/08/21 Rx ticagrelor 90 mg tablet 90 mg PO BID #180 tab 12/07/20 03/08/21 03/08/21 Rx empagliflozin [Jardiance] 25 mg PO DAILY 03/08/21 03/08/21 03/08/21 History furosemide [Lasix] 20 mg PO DAILY 03/08/21 03/08/21 03/08/21 History Allergies Allergy/AdvReac Type Severity Reaction Status Date / Time Penicillins Allergy ALGY-Rash Verified 03/08/21 11:08 PFSH Acute PFSH: Medical History GERD (gastroesophageal reflux disease) Hypertension Morbid obesity NSTEMI (non-ST elevated myocardial infarction) Type 2 diabetes mellitus Surgical History H/O cardiac catheterization Family History Brother CAD (coronary artery disease) Brother CAD (coronary artery disease) Mother CAD (coronary artery disease) Social History Smoking and tobacco status: current some day smoker (1 ppd, for 7 years) cigarettes Packs smoked per day: 1 Alcohol intake: current Alcohol intake frequency: few times a month Marital status: Vitals/I&O/Wt Last Vital Signs Temp 98.4 F 03/08/21 13:22 Pulse 56 L 03/08/21 18:54 Resp 17 03/08/21 20:41 BP 118/70 03/08/21 20:43 Pulse Ox 94 03/08/21 20:41 Weight last 48 hrs Weight 120.202 kg Physical Exam Const: COMMON NORMALS: no acute distress and patient oriented x3 Eye: COMMON NORMALS: Equal, round and reactive pupils present and EOMs intact bilaterally GENERAL EYE: appearance normal, both eyes and all related structures PUPIL: Yes Equal, round and reactive pupils present Neck/C-Spine: COMMON NORMALS: full ROM and no lymphadenopathy THYROID: Thyroid normal Lymph: LYMPHATIC: no lymphadenopathy noted Resp: COMMON NORMALS: normal respiratory effort, No retractions, No use of accessory muscles and clear to auscultation bilaterally AUSCULTATION: clear to auscultation bilaterally Cardio: COMMON NORMALS: regular rate, regular rhythm, S1 normal heart sound present, S2 normal heart sound present, No gallops present (Cardio), No clicks present (Cardio) and No murmurs present (Cardio) RATE: regular rate RHYTHM: regular rhythm HEART SOUNDS: S1 normal heart sound present and S2 normal heart sound present GI: COMMON NORMALS: Normal to inspection, nondistended, normoactive bowel sounds present, Soft to palpation, non-tender and No hepatosplenomegaly present PALPATION: Yes Soft to palpation and Yes No hepatosplenomegaly present Extremity: COMMON NORMALS: no pedal edema Neuro: COMMON NORMALS: patient oriented x3, CN's II-XII intact bilaterally, moves all extremities and no focal motor deficits Psych: COMMON NORMALS: mental status grossly normal, Normal thought process present and cooperative THOUGHT PROCESS: Normal thought process present Data : 03/08/21 18:50 03/08/21 18:50 A&P Assessment and plan (1) Chest pain: -Cardiac echocardiogram on July 2020 showed 1. Normal left ventricular cavity size and systolic function. Left ventricular ejection fraction is estimated at 55 %. There is possible hypokinesis of basal to mid anteroseptal and apical septal jones. Grade I diastolic dysfunction (abnormal relaxation filling pattern), normal to mildly elevated filling pressures. 2. Normal right ventricular size and systolic function. 3. No significant valvular abnormality based on the study. 4. Normal pulmonary artery pressure. 5. No prior similar studies to compare. -Cardiac catheterization 10/31/2020 showed 1. No significant disease noted in the Left Main, LAD, Circumflex, or RCA coronary arteries. 2. 2nd Diag was treated with Drug Eluting Stent. 3. Reason for 4. left heart cath/PCI: 5. Non-ST ovation [place]. -EKG no acute ST-T wave changes -Baseline troponin VII, 120-minute 7.4 Plan: -Admit to CSU -Monitor for chest pain -Nitro for chest pain -Serial EKGs, serial troponins, telemetry monitoring -Continue aspirin, Brilinta, statin -Cannot tolerate beta-breanna due to bradycardia -Cardiac stress test ordered for tomorrow morning -N.p.o. midnight -Full code -Lovenox for DVT prophylaxis Hyperlipidemia, continue home meds Hypertension, continue home meds Type 2 diabetes mellitus, continue insulin sliding scale Obstructive sleep apnea, continue home BiPAP Polycythemia, likely secondary to nocturnal hypoxia Status: Acute Qualifiers: Chest pain type: unspecified Qualified Code(s): R07.9 - Chest pain, unspecified (2) Hyperlipidemia: Status: Acute Qualifiers: Hyperlipidemia type: mixed hyperlipidemia Qualified Code(s): E78.2 - Mixed hyperlipidemia (3) Sleep apnea: Status: Acute (4) Hypertension: Status: Acute Qualifiers: Hypertension type: essential hypertension Qualified Code(s): I10 - Essential (primary) hypertension (5) Type 2 diabetes mellitus: Status: Acute Qualifiers: Diabetes mellitus complication status: without complication Diabetes mellitus [employer] insulin use: without mcfp use Qualified Code(s): E11.9 - Type 2 diabetes mellitus without complications (6) Morbid obesity: Status: Acute Attestations Medical Necessity Statement*: Patient requires hospitalization, outpatient with observation for chest pain Coding Level of Care Code Acute 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
[2021-03-08 22:53] LABS: Glucose Point of Care 94 mg/dL (70-110)
[2021-03-09] VITALS (9 sets, daily range): BP systolic 95–134; BP diastolic 55–83; PULSE 53–74; RESP 16–20; TEMP 36.6–36.9; O2SAT 92–96
--- NOTE | 2021-03-09 00:13 | ECG_ITS ---
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 Measurements Intervals [place] Rate: 61 P: 46 [place]: 205 QRS: -34 QRSD: 111 T: 13 QT: 442 QTc: 447 Interpretive Statements SINUS RHYTHM WITH MARKED SINUS ARRHYTHMIA LOW QRS VOLTAGE IN PRECORDIAL LEADS [QRS DEFLECTION < 1.0 mV IN CHEST LEADS] INFERIOR MYOCARDIAL INFARCTION , PROBABLY OLD [40+ ms Q WAVE AND/OR ST/T ABNORMALITY IN II/aVF] ANTEROSEPTAL MYOCARDIAL INFARCTION , OF INDETERMINATE AGE [40+ ms Q WAVE IN V1-V4] Compared to ECG 03/08/2021 13:19:42 First degree AV block no longer present Myocardial infarct finding still present Electronically Signed On 03-09-2021 23:46:18 CDT by Gordy Lilly M.D. [id number]
--- NOTE | 2021-03-09 00:38 | PC.NURSE ---
i reported low pulse 53 to nurse
[2021-03-09] MEDS: enoxaparin 40 mg/0.4 mL Syringe SUBCUT (00:44)
[2021-03-09 01:26] LABS: Basophils # 0.1 10^3/uL (0.0-0.1); Basophils % 0.6 %; Eosinophils # 0.4 10^3/uL (0.0-0.8); Eosinophils % 2.6 %; Hematocrit 47.5 % (37.0-47.0); Hemoglobin 15.5 g/dL (11.5-15.3); Lymphocytes # 2.9 10^3/uL (0.8-4.8); Lymphocytes % 20.8 %; Mean Corpuscular HGB Conc 32.6 g/dL (30.0-36.0); Mean Corpuscular Hemoglobin 29.8 pg (28.0-34.0); Mean Corpuscular Volume 91.2 fl (81-99); Mean Platelet Volume 10.3 fL (7.4-10.4); Monocytes # 1.1 10^3/uL (0.2-0.9); Monocytes % 7.5 %; Neutrophils # 9.53 10^3/uL (1.8-7.7); Neutrophils % 68.2 %; Nucleated Red Blood Cells % 0 %; Platelet Count 243 10^3/cmm (130-400); Red Blood Count 5.21 10^6/uL (4.1-5.3); Red Cell Distribution Width 15.1 % (12.1-15.1)
[2021-03-09 01:39] LABS: INR 1.02 (0.8-1.2)
[2021-03-09 01:47] LABS: Alanine Aminotransferase 12 U/L (0-33); Albumin Level 3.4 g/dL (3.5-5.2); Alkaline Phosphatase 87 IU/L (35-105); Anion Gap 12.5 (5-19); Aspartate Amino Transferase 11 U/L (0-32); Blood Urea Nitrogen 12 mg/dL (8-23); Calcium 8.8 mg/dL (8.5-10.5); Carbon Dioxide 29 mmol/L (22-29); Chloride 104 mmol/L (98-107); Globulin 2.8 g/dL (1.3-4.6); Glomerular Filtration Rate 161.2 mL/min (90-130); Glucose 123 mg/dL (65-115); Magnesium 1.8 mg/dL (1.7-2.3); Osmolality Calculated 295 mOsm/kg (285-295); Phosphorus 3.4 mg/dL (2.5-4.5); Potassium 3.5 mmol/L (3.5-5.1); Sodium 142 mmol/L (136-145); Total Bilirubin 0.8 mg/dL (0.15-1.2); Total Protein 6.2 g/dL (6.6-8.7)
[2021-03-09 01:48] LABS: Troponin 5 6HR 6.03 ng/L (0-10); Troponin 5 6HR Delta -0.97 ng/L (0-12)
[2021-03-09 01:52] LABS: NT Pro B Type Natriuretic Pept 141 pg/mL (0-125)
--- NOTE | 2021-03-09 04:19 | PC.NURSE ---
i reported low pulse 59 to nurse
--- NOTE | 2021-03-09 06:00 | ECG_ITS ---
[facility] Test Date: 2021-03-09 Pat Name: Leonila Zacarias Department: Room: 277 Gender: Female Theology Professor: : 1960 Requested By: Jeffy Virk Order Number: [id number] Simi MD: Eunice Sanderson M.D. Interpretive Statements NAME OF STUDY: LEXISCAN SESTAMIBI STRESS TEST INDICATION: Chest Pain PROCEDURE: At the baseline, the blood pressure was 102/64 mmHg with a heart rate of 60 bpm. The electrocardiogram showed sinus rhythm with first-degree AV block, left axis deviation. Possible old anterior infarct. Low QRS voltage in precordial leads. The Lexiscan was infused over a period of 20 seconds. A total of 0.4 milligrams of Lexiscan was infused. The stress phase was continued for a total of 5 minutes. Heart rate at the end of the stress phase was 78 bpm with a blood pressure of 99/62 mmHg. The EKG at the peak infusion revealed no significant ST-T wave changes. The study was terminated due to protocol completion. Sestamibi was injected 20 seconds after the Lexiscan infusion. Blood pressure at the end of the recovery phase was 100/69 mmHg with a heart rate of 74 beats per minute. CONCLUSION: 1. No significant EKG changes with the LexiScan infusion. 2. No LexiScan induced chest pain or cardiac arrhythmia. 3. Normal blood pressure and heart rate response. 4. Sestamibi/sestamibi perfusion scan pending; see separate report. Electronically Signed On 03-09-2021 13:21:39 CDT by Eunice Sanderson M.D. [id number]
[2021-03-09 06:13] LABS: Glucose Point of Care 120 mg/dL (70-110)
[2021-03-09] MEDS: regadenoson 0.4 Mg/5 ml Syringe IVP (07:55)
[2021-03-09] MEDS: metoprolol tartrate 25 mg Tablet PO (10:11)
[2021-03-09] MEDS: pantoprazole DR 40 mg Tablet PO (10:11)
[2021-03-09] MEDS: aspirin 81 mg Chew Tablet PO (10:11)
[2021-03-09] MEDS: ticagrelor 90 mg Tablet PO (10:11)
[2021-03-09] MEDS: lisinopril 2.5 mg Tablet PO (10:11)
[2021-03-09] MEDS: FUROsemide 20 mg Tablet PO (10:11)
--- NOTE | 2021-03-09 11:31 | PC.CHAP ---
Pastoral Care Encounter/Spiritual Assessment Type of Contact [] Declined music mixer visit [] Patient/Family/Request visit [] Outpatient visit [] Follow-up visit [] Physician referral [] Code/Alert [x] Routine visit [] Staff referral [] Actively dying [] Patient sleeping [] Family support [] [] Out of room [] Palliative care [] [] Receiving care in room [] Pre-surgical visit [] Trauma [] Long length of stay [] ICU visit [] Other: Relational/Emotional Strength [x] Patient feels connected with others/family/visitors/staff [] Distress [] Loneliness/isolation [] Abandonment Spirituality of Patient [x] Person of Svetlana [] Attends Jewish of their Svetlana [x] Believes in Prayer [] Reads Bible or Anabaptist materials [] There are Spiritual issues to be addressed Robotics Mechanic Interventions [x] Prayer [x] Active listening [x] Non-anxious presence [] Spiritual/emotional support [] Crisis/trauma care [] Spiritual counseling [] Bereavement support [] Provided bereavement packet [] Provided Bible/devotional materials [] Provided toy/stuffed animal, coloring book to patient or family member [] Provided Communion [] Anointing/[place] [] Salvation [] Completed spiritual assessment [] Other: Impact on Illness or Injury [] Angry [] Fearful [] Anxious [] Often cries [] Exhaustion [] Unable to work [] Unable to attend nondenominational [] Unable to walk/stand [] Unable to read [] Unable to drive [] Unable to eat/drink [] Unable to sleep [] Unable to be with family [] Patient intubated [] Other: Summary A good woman with confidence, warm, and connected. [id number] is Pradip Choudhary, who is a volunteer music mixer here. She also had a classmate from school with her visiting. Time spent with patient 5 minutes.
[2021-03-09 12:07] LABS: Glucose Point of Care 111 mg/dL (70-110)
--- NOTE | 2021-03-09 13:50 | P.DS_ITS ---
Discharge Providers Date of Admission: 03/08/21 20:50 Date of Discharge: March 09, 2021 Attending Provider at Admission: Jeffy Virk MD Attending Provider at Discharge: Aliza Joyce MD Primary Care Provider: Tonia Valverde MD Diagnoses at Discharge Discharge Diagnosis (1) Chest pain: Status: Acute Qualifiers: Chest pain type: unspecified Qualified Code(s): R07.9 - Chest pain, unspecified (2) Hyperlipidemia: Status: Acute Qualifiers: Hyperlipidemia type: mixed hyperlipidemia Qualified Code(s): E78.2 - Mixed hyperlipidemia (3) Sleep apnea: Status: Acute (4) Hypertension: Status: Acute Qualifiers: Hypertension type: essential hypertension Qualified Code(s): I10 - Essential (primary) hypertension (5) Type 2 diabetes mellitus: Status: Acute Qualifiers: Diabetes mellitus complication status: without complication Diabetes mellitus tank terminal gauger insulin use: without tank terminal gauger use Qualified Code(s): E11.9 - Type 2 diabetes mellitus without complications (6) Morbid obesity: Status: Acute Reason for Visit Reason for Visit: Chest Pain, sent per dr Hospital Course Hospital Course History of Present Illness by Dr. Jeffy Keen Rell is a 61 year old female with a past medical history of CAD status post stenting to diagonal compliant with aspirin and Brilinta, noninsulin- dependent type 2 diabetes mellitus, last A1c 6.2, hypertension, hyperlipidemia, obstructive sleep apnea on home BiPAP, who presents [facility] due to a week history of chest pain. Patient tells me that for the last week she has had some substernal chest pain, the pain is typically dull, sometimes pressure- like, in the anterior chest, sometimes under the left breast, radiating to up to the left shoulder, radiating up to the left neck, is very similar to the chest pain she had when she had her stent placed, but less in severity, but is becoming much more frequent, not associate with shortness of breath, no lightheaded, dizziness, no diaphoresis, she presented to her primary care physician this morning and had complaints of chest pain no acute ST-T wave changes in the EKG that was performed in office, she was told to come to the emergency room by Dr. Felix as her primary care provider contacted Dr. felix, here in the emergency room she does not have any clinically significant troponin, no delta troponin, EKG no acute ST-T wave changes, ER physician spoke to Dr. Julia lund, who recommended admission with stress testing. Hospitalist team was called for admission. Currently chest pain-free, no palpable chest pain, no history of cough, no sinus symptoms, no history of Covid infection, has was received both Covid vaccine Hospital course Patient was admitted for evaluation of chest pain considering her established history of coronary disease cardiac stress test was requested which was unremarkable, Dr. Sanderson has read the stress test results. Patient remained chest pain-free hemodynamically stable. Isosorbide dinitrate antianginal added, she needs optimization of her antianginal medications. Patient will be discharged on 03/09. I have been reluctant to increase metoprolol because of her heart rate range of 50-70. She was given instruction to not take isosorbide dinitrate if systolic blood pressure less than 90 mmHg. Physical Exam Narrative: EXAM NARRATIVE: Patient was laying comfortably in her bed Saturating well on room air Morbid obese Distended abdomen nontender visceral obesity Extremity without edema No neurological deficit Discharge Data Data Completed and Pending: Completed Studies During Hospitalization Category Date Time Status Sestamibi Stress Test Request Routi ne Exams 03/09/21 06:00 Completed XR chest 1V dyan ble [id number] Stat Exams 03/08/21 18:13 Completed NM jyoti perf SPECT r/s* [id number] Routin e Nuc Med 03/09/21 23:01 Completed Pending at discharge Category Date Time Status Complete Blood Co unt w/Auto AM LABS Lab 03/10/21 04:00 Ordered Complete Blood Co unt w/Auto AM LABS Lab 03/11/21 04:00 Ordered Comprehensive Met abolic Panel AM LA BS Lab 03/10/21 04:00 Ordered Comprehensive Met abolic Panel AM LA BS Lab 03/11/21 04:00 Ordered Magnesium AM LABS Lab 03/10/21 04:00 Ordered Magnesium AM LABS Lab 03/11/21 04:00 Ordered Phosphorus AM LAB S Lab 03/10/21 04:00 Ordered Phosphorus AM LAB S Lab 03/11/21 04:00 Ordered Prothrombin Time INR AM LABS Lab 03/10/21 04:00 Ordered Prothrombin Time INR AM LABS Lab 03/11/21 04:00 Ordered Labs from last 24 hours 03/09/21 03/09/21 03/09/21 11:25 06:02 01:05 WBC RBC Hgb Hct MCV MCH MCHC RDW Plt Count MPV Neut % (Auto) Lymph % (Auto) [place] % (Auto) Eos % (Auto) Baso % (Auto) Neut # (Auto) Lymph # (Auto) [place] # (Auto) Eos # (Auto) Baso # (Auto) Nucleated RBC % (a uto) Nucleated RBCs # PT INR Sodium Potassium Chloride Carbon Dioxide Anion Gap BUN Creatinine GFR Calculation Glucose POC Glucose 111 H 120 H Calculated Osmolal ity Calcium Phosphorus Magnesium Total Bilirubin AST ALT Alkaline Phosphata se Troponin T Baselin e Troponin T 120 Min [place] Troponin T Troponin T Hi Sens 6Hr 6.03 Troponin T Hi Sens 6Hr Delta -0.97 L NT-Pro-B Natriuret Pep Total Protein Albumin Globulin Lipase 03/09/21 03/09/21 03/09/21 01:05 01:05 01:05 WBC RBC Hgb Hct MCV MCH MCHC RDW Plt Count MPV Neut % (Auto) Lymph % (Auto) [place] % (Auto) Eos % (Auto) Baso % (Auto) Neut # (Auto) Lymph # (Auto) [place] # (Auto) Eos # (Auto) Baso # (Auto) Nucleated RBC % (a uto) Nucleated RBCs # PT 13.70 INR 1.02 Sodium 142 Potassium 3.5 Chloride 104 Carbon Dioxide 29 Anion Gap 12.5 BUN 12 Creatinine 0.4 L GFR Calculation 161.2 H Glucose 123 H POC Glucose Calculated Osmolal ity 295 Calcium 8.8 Phosphorus 3.4 Magnesium 1.8 Total Bilirubin 0.8 AST 11 ALT 12 Alkaline Phosphata se 87 Troponin T Baselin e Troponin T 120 Min [place] Troponin T Troponin T Hi Sens 6Hr Troponin T Hi Sens 6Hr [place] NT-Pro-B Natriuret Pep 141 H Total Protein 6.2 L Albumin 3.4 L Globulin 2.8 Lipase 03/09/21 03/08/21 03/08/21 01:05 22:50 20:50 WBC 14.0 H RBC 5.21 Hgb 15.5 H Hct 47.5 H MCV 91.2 MCH 29.8 MCHC 32.6 RDW 15.1 Plt Count 243 MPV 10.3 Neut % (Auto) 68.2 Lymph % (Auto) 20.8 [place] % (Auto) 7.5 Eos % (Auto) 2.6 Baso % (Auto) 0.6 Neut # (Auto) 9.53 H Lymph # (Auto) 2.9 [place] # (Auto) 1.1 H Eos # (Auto) 0.4 Baso # (Auto) 0.1 Nucleated RBC % (a uto) 0 Nucleated RBCs # 0.0 PT INR Sodium Potassium Chloride Carbon Dioxide Anion Gap BUN Creatinine GFR Calculation Glucose POC Glucose 94 Calculated Osmolal ity Calcium Phosphorus Magnesium Total Bilirubin AST ALT Alkaline Phosphata se Troponin T Baselin e Troponin T 120 Min [place] 7.40 Delta Troponin T 0.40 Troponin T Hi Sens 6Hr Troponin T Hi Sens 6Hr [place] NT-Pro-B Natriuret Pep Total Protein Albumin Globulin Lipase 03/08/21 03/08/21 03/08/21 18:50 18:50 18:50 WBC 14.2 H RBC 5.74 H Hgb 17.0 H Hct 52.6 H MCV 91.6 MCH 29.6 MCHC 32.3 RDW 15.3 H Plt Count 281 MPV 10.4 Neut % (Auto) 69.1 Lymph % (Auto) 20.9 [place] % (Auto) 6.5 Eos % (Auto) 2.6 Baso % (Auto) 0.6 Neut # (Auto) 9.83 H Lymph # (Auto) 3.0 [place] # (Auto) 0.9 Eos # (Auto) 0.4 Baso # (Auto) 0.1 Nucleated RBC % (a uto) 0 Nucleated RBCs # 0.0 PT INR Sodium 143 Potassium 3.9 Chloride 102 Carbon Dioxide 30 H Anion Gap 14.9 BUN 10 Creatinine 0.4 L GFR Calculation 161.2 H Glucose 93 POC Glucose Calculated Osmolal ity 295 Calcium 9.5 Phosphorus Magnesium Total Bilirubin 1.0 AST 13 ALT 14 Alkaline Phosphata se 104 Troponin T Baselin e 7 Troponin T 120 Min [place] Troponin T Troponin T Hi Sens 6Hr Troponin T Hi Sens 6Hr [place] NT-Pro-B Natriuret Pep 157 H Total Protein 7.0 Albumin 4.1 Globulin 2.9 Lipase 12 L Vitals: Last Vital Signs Temp 98.4 F 03/09/21 11:30 Pulse 57 L 03/09/21 11:30 Resp 16 03/09/21 11:30 BP 104/68 03/09/21 11:30 Pulse Ox 92 03/09/21 11:30 Discharge Plan Discharge Patient Disposition: Home Condition: Stable Prescriptions: New isosorbide dinitrate 10 mg tablet 5 mg PO BID Qty: 60 RF: 0 Continued Brilinta 90 mg tablet 90 mg PO BID Qty: 180 RF: 4 metoprolol tartrate 25 mg tablet 25 mg PO BID@0900,2100 Qty: 60 RF: 4 lisinopril 2.5 mg tablet 2.5 mg PO DAILY Qty: 30 RF: 6 atorvastatin 40 mg tablet 80 mg PO BEDTIME Qty: 90 RF: 4 aspirin 81 mg Tablet,Chewable 81 mg PO DAILY Qty: 90 RF: 4 Lasix 20 mg tablet 20 mg PO DAILY RF: 0 Jardiance 25 mg tablet 25 mg PO DAILY RF: 0 Discharge Orders: Discharge Order (Routine); Ordered 03/09/21 Ordered By: Aliza Joyce Referrals: Tonia Valverde MD [Primary Care Provider] - 7-10 days Discharge Diet: Cardiac Discharge Activity: Resume usual activity Patient Instructions: Opioid Safety Activity Restrictions/Additional Instructions: Your stress test was negative, we have added isosorbide dinitrate 5 mg twice a day which is antianginal, if your blood pressure is less than 90 please do not take this medication and also make sure you have 12-hour off interval before taking next dose to avoid nitrate tolerance Discharge Attestations Time Spent in Discharge Care*: less than 30 min Quality Metrics Clinical Quality Measures During this hospital stay, did patient experience: None Coding Level of Care Code Acute Chg FW DC note Diagnoses Chest pain R07.9 Chest pain type: unspecified Hyperlipidemia E78.2 Hyperlipidemia type: mixed hyperlipidemia Sleep apnea G47.30 Hypertension I10 Hypertension type: essential hypertension Type 2 diabetes mellitus E11.9 Diabetes mellitus complication status: without complication Diabetes mellitus halfway insulin use: without halfway use Morbid obesity E66.01
--- NOTE | 2021-03-09 14:53 | PC.NURSE ---
Discharge Note Patient discharged to home via private vehicle accompanied by . Discharge instructions reviewed with patient and/or senior patient account representative. Mobile pharmacy medications and/or prescriptions provided. Belongings/home medications returned.
--- NOTE | 2021-03-09 23:01 | NMCV_ITS ---
NM jyoti perf SPECT r/s* [id number] Rashawn Zacariasa Age: 61 Gender: F : 1960 Exam Date: 03/09/2021 07:12 Ordering Phys: Jeffy Virk MD Technologist: ROD Cummings Exam Location: [facility] Indications: CHEST PAIN STRESS TEST Please see separate stress test report in [facility] for full findings IMAGE PROTOCOL Rest/Stress 1 Lexiscan Day Radiopharmaceutical Dose (mCi) Administration Site Administered by Rest: Tc-99m 11.0 IV ROD Nash Sestamibi Stress:Tc-99m 32.6 IV ROD Nash Sestamibi Rest: 09-Mar-2021 60 Discovery 630 Stress: 09-Mar-2021 30 Discovery 630 0.4mg Lexiscan. Images obtained in supine and prone position. SPECT RESULTS Technical Quality: Excellent Raw Data Analysis: Normal Image Corrections: No attenuation or motion correction applied Summed Stress Score: 2 Summed Rest Score: 5 Summed Difference Score: 1 PERFUSION FINDINGS Small size perfusion abnormality of mild severity of mid inferolateral and apical lateral wall on rest images with somewhat improved tracer uptake in mid inferolateral and apical inferior jones on stress images. Subtle reversibility noted in apical lateral wall on supine stress images with improved tracer uptake in prone stress images. FUNCTIONAL RESULTS (calculated via Gated SPECT) Stress Image LV EF (%): 80 Stress EDV (mL):109 TID: 0.8 Stress ESV (mL):22 FUNCTIONAL FINDINGS: The left ventricle is normal in size. Transient Ischemia Dilatation of 0.8. There is normal left ventricular systolic function. The left ventricular ejection fraction is normal with a value of 80%. There is normal left ventricular wall thickening with no regional wall motion abnormality. Normal end-diastolic and end-systolic volume. IMPRESSIONS 1. Myocardial perfusion imaging is normal. Attenuation artifact noted in mid to apical inferolateral and apical inferior jones. 2. Overall left ventricular systolic function is normal without regional wall motion abnormalities. 3. The left ventricular ejection fraction is normal with a value of 80%. 4. No significant coronary ischemia based on the study. 5. No prior similar studies to compare. Eunice Sanderson MD (Electronically Signed) Final Date: 09 March 2021 13:38 S
--- NOTE | 2021-03-11 09:32 | PC.SOCIAL ---
discharge follow up call made. patient picked up isosorbide from the pharmacy and is taking as directed. patient given follow up appointment date and time. denies questions or concerns.
--- NOTE | 2021-03-12 16:30 | PC.RESP ---
SMOKING CESSATION INFORMATION SENT TO PATIENT.
== END 2021-03-09 14:54 | disposition home or self-care (01) ==
LOC: ER 21:01 → MEDSURG 22:04
PROVIDERS: Admitting Provider Family Medicine; Emergency Provider Emergency Medicine; PCP Family Medicine; Visit Provider Internal Medicine
DX: R07.9 Chest pain, unspecified (principal); E78.2 Mixed hyperlipidemia; I10 Essential (primary) hypertension; E11.9 Type 2 diabetes mellitus without complications; E66.01 Morbid (severe) obesity due to excess calories; Z68.41 Body mass index [BMI] 40.0-44.9, adult; I25.10 Atherosclerotic heart disease of native coronary artery without angina pectoris; Z95.5 Presence of coronary angioplasty implant and graft; G47.33 Obstructive sleep apnea (adult) (pediatric); Z79.82 Long term (current) use of aspirin; Z82.49 Family history of ischemic heart disease and other diseases of the circulatory system; F17.210 Nicotine dependence, cigarettes, uncomplicated
CPT/HCPCS: 36415; 36416; 71045; 78452; 80053; 82962; 83690; 83735; 83880; 84100; 84484; 85025; 85610; 93005; 93017; 96360; 96361; 96372; 99285; A9500; G0378; J1650; J2785

== ENCOUNTER → 2021-10-19 12:27 | Outpatient (BNVA) | payer BC, OTHER, SELFPAY | PROVIDERS: PCP Family Medicine; Visit Provider Family Medicine | DX: I10 Essential (primary) hypertension (principal); E78.2 Mixed hyperlipidemia; E11.9 Type 2 diabetes mellitus without complications | CPT/HCPCS: 80053; 80061; 83036; 85025 ==

== ENCOUNTER → 2022-05-30 11:19 | Outpatient (BNVA) | payer BC, OTHER, SELFPAY | PROVIDERS: PCP Family Medicine; Visit Provider Family Medicine | DX: E11.9 Type 2 diabetes mellitus without complications (principal); E78.2 Mixed hyperlipidemia; I10 Essential (primary) hypertension; M79.7 Fibromyalgia | CPT/HCPCS: 80053; 80061; 83036; 84443; 85025 ==

== ENCOUNTER → 2023-02-01 11:55 | Outpatient (BNVA) | payer MEDICARE, OTHER, SELFPAY | PROVIDERS: PCP Family Medicine; Visit Provider Family Medicine | DX: I10 Essential (primary) hypertension (principal); E78.5 Hyperlipidemia, unspecified; E11.9 Type 2 diabetes mellitus without complications; E78.2 Mixed hyperlipidemia | CPT/HCPCS: 80053; 80061; 83036; 84443 ==

== ENCOUNTER → 2023-07-07 12:30 | Outpatient (BNVA) | payer MEDICARE, OTHER, SELFPAY | PROVIDERS: PCP Family Medicine; Visit Provider Family Medicine | DX: I10 Essential (primary) hypertension (principal); E78.5 Hyperlipidemia, unspecified; E11.9 Type 2 diabetes mellitus without complications; E78.2 Mixed hyperlipidemia | CPT/HCPCS: 80053; 80061; 83036; 84443; 85025 ==

== ENCOUNTER → 2024-03-14 11:44 | Outpatient (BNVA) | payer MEDICARE, OTHER, SELFPAY | PROVIDERS: PCP Family Medicine; Visit Provider Family Medicine | DX: I10 Essential (primary) hypertension (principal); E78.2 Mixed hyperlipidemia; E11.9 Type 2 diabetes mellitus without complications | CPT/HCPCS: 80053; 80061; 83036; 84443; 85025 ==

== ENCOUNTER → 2024-07-30 09:01 | Outpatient (BNVA) | payer MEDICARE, OTHER, SELFPAY | PROVIDERS: PCP Family Medicine; Visit Provider Clinical Nurse Specialist Adult Health | DX: G47.30 Sleep apnea, unspecified (principal); I10 Essential (primary) hypertension; I50.9 Heart failure, unspecified; E11.9 Type 2 diabetes mellitus without complications; E78.2 Mixed hyperlipidemia | CPT/HCPCS: 80053; 80061; 83036; 84443; 85025 ==

== ENCOUNTER → 2025-01-21 09:23 | Outpatient (BNVA) | payer MEDICARE, OTHER, SELFPAY | PROVIDERS: PCP Clinical Nurse Specialist Adult Health; Visit Provider Clinical Nurse Specialist Adult Health | DX: E11.9 Type 2 diabetes mellitus without complications (principal); I10 Essential (primary) hypertension; E78.2 Mixed hyperlipidemia; E55.9 Vitamin D deficiency, unspecified; D72.829 Elevated white blood cell count, unspecified | CPT/HCPCS: 80053; 80061; 81000; 82306; 82607; 83036; 85025 ==